=== PATIENT | female | born 1950 | race Caucasian/White ===

== ENCOUNTER 2020-07-04 13:54 | Inpatient (IN) ==
[2020-07-04] MEDS ORDERED: 0.9 % SODIUM CHLORIDE 1,000 ML IV ONE (15:52)
[2020-07-04] MEDS ORDERED: ONDANSETRON 4 MG/2 ML VIAL IV ONE (15:52)
[2020-07-04] MEDS ORDERED: HYDROmorphone 0.5 MG/0.5 ML SYRINGE IV ONE (15:52)
--- NOTE | 2020-07-04 15:58 | Emergency Department Note ---
Abdominal Pain HPI General Chief Complaint: Abdominal Pain Stated Complaint: Abd Pain Radiates To Back Time Seen by Provider: 07/04/20 15:40 Source: patient Mode of arrival: ambulatory Limitations: no limitations History of Present Illness HPI Narrative: Narrative: 70-year-old female patient presents emergency depar tme with chief complaint of right upper quadrant abdominal pain. She tells me this is "been coming on for some time" however it worsened considerably today after eating breakfast. She mentions eating an omelette and some neeraj prior to the worsening pain. She describes the pain as a deep, boring ache to her right upper quadrant that radiates towards the posterior. She admits to still having her gallbladder. She admits to some mild nausea but no vomiting. She admits to considerable diarrhea. ROS: Denies systemic illness, fever, sweats, chills. Denies headaches, tinnitus, or vision changes. Denies runny nose, sinus congestion, or cough. Denies shortness of breath. Denies retrosternal chest pain or palpitations. Denies dysuria, hematuria, urinary frequency, or urinary urgency. Denies generalized or focal weakness. Related Data Home Medications Medication Instructions Recorded Confirmed cyanocobalamin (vitamin B-12) 1,000 mcg PO QDAY 12/03/16 07/04/20 1,000 mcg tablet warfarin 7.5 mg tablet 7.5 mg PO WEEKLY tab 12/04/19 07/04/20 insulin glargine 100 unit/mL (3 45 unit SUB-Q QDAY ml 04/09/20 07/04/20 mL) subcutaneous pen garcinia cambogia 1 tab PO TID 06/03/20 07/04/20 omeprazole 20 mg PO DAILY 07/04/20 07/04/20 Previous Rx's Medication Instructions Recorded blood-glucose meter #1 each 05/02/19 denosumab 60 mg/mL subcutaneous 60 mg SUB-Q [id number] #1 ml 12/04/19 syringe metoprolol tartrate 50 mg tablet 50 mg PO BID #60 tab 02/26/20 isosorbide mononitrate 30 mg 30 mg PO DAILY #90 tab 04/17/20 tablet,extended release 24 hr losartan 50 mg tablet 50 mg PO QDAY #90 tab 05/20/20 warfarin 2.5 mg tablet See Rx Instructions .ROUTE 05/27/20 .COMPLEX #60 tab torsemide 10 mg tablet 10 mg PO QDAY #30 tab 06/03/20 Allergies Allergy/AdvReac Type Severity Reaction Status Date / Time lisinopril AdvReac Intermediate Anxiety Verified 06/03/20 10:39 sulfamethoxazole AdvReac Mild Other Verified 06/03/20 10:39 [From Bactrim] trimethoprim [From Bactrim] AdvReac Mild Other Verified 06/03/20 10:39 aspirin AdvReac Unknown bleeding Verified 06/03/20 10:39 in eye Review of Systems ROS ROS Narrative: Narrative: All systems ED: reviewed and negative except as stated. 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) Osteoporosis (Chronic) Anticoagulated on Coumadin (Chronic) Hyperkalemia (Acute) CKD (chronic kidney disease), stage III (Chronic) H/O: hysterectomy (Acute) H/O colonoscopy (Acute) 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) Hyperlipidemia (Acute) Hypertension, essential (Chronic) Gestational diabetes mellitus (Acute) GERD (gastroesophageal reflux disease) (Acute) Edema (Acute) DMII (diabetes mellitus, type 2) (Chronic) CVA (cerebral vascular accident) (Acute) Cataracts, bilateral (Acute) Anemia (Acute) Medical History Acute on chronic kidney failure (Ruled-out) Altered mental status (Resolved) Anemia (Acute) Cataracts, bilateral (Acute) CKD (chronic kidney disease) (Ruled-out) CKD (chronic kidney disease), stage III (Chronic) CVA (cerebral vascular accident) (Acute) DMII (diabetes mellitus, type 2) (Chronic) Edema (Acute) GERD (gastroesophageal reflux disease) (Acute) Gestational diabetes mellitus (Acute) Hyperkalemia (Acute) Hyperkalemia (Resolved) Hyperlipidemia (Acute) Hypertension, essential (Chronic) Well-controlled on current regimen Hypertensive renal disease (Ruled-out) intermediate frame tender use of drug (Ruled-out) Osteoporosis (Chronic) GI issue preclude Phosphonates Recheck Vit D2 levels and PTHi Prolia 60ug SQ q 6 months Pneumonia involving right lung (Resolved) Renal insufficiency (Resolved) 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 She is in no acute respiratory distress.) Head Head: atraumatic and normocephalic Eye Eye: Present normal appearance, PERRL and EOMI; Absent scleral icterus and conjunctival injection ENT ENT: Present normal oropharynx and mucous membranes moist Neck Neck: Present trachea midline; Absent lymphadenopathy Chest Chest: Present symmetric chest wall rise Respiratory Respiratory: Present normal lung sounds bilaterally; Absent respiratory distress, wheezes, stridor, accessory muscle use and prolonged expiratory phase Cardiovascular Cardiovascular: Present regular rate, normal rhythm and systolic murmur; Absent diastolic murmur Adbominal Abdominal: Present soft, tenderness, guarding, normal bowel sounds and Carroll's sign; Absent distention, rebound, rigidity, organomegaly and mass Expanded Abdominal Abdominal Tenderness: Present RUQ and severe Extremities Extremities: Present normal inspection, full ROM and normal capillary refill; Absent pedal edema Neurological Neurological: Present alert and oriented X3 Psychiatric Psychiatric: Present normal affect and normal mood Skin Skin: Present warm, dry and normal color Course Course Course Narrative: The differential diagnosis for upper abdominal pain in the adult patient large and contains the following conditions. Predominately left sided: Splenomegaly, splenic infarct, splenic abscess, and splenic rupture. Predominately right sided: Biliary colic, acute cholecystitis, acute cholang itis, sphincter of Oddi dysfunction, acute hepatitis, perihepatitis (Nuyq-Znml-Ieject syndrome), liver abscess, portal vein thrombosis, and Budd- Chiari syndrome. Patient did have considerable tenderness on abdominal exam to the right upper quadrant. She notes the pain worsened after eating a high-fat breakfast. We are going to order an ultrasound of her gallbladder looking for cholecystitis/cholelithiasis. I am going to order some screening laboratory studies. Patient was provided normal saline at thousand milliliter bolus. She was given Dilaudid 0.5mg and Zofran 4 mg IVP. Reevaluation(s) Reevaluation #1: A review the patient's diagnostics show the following: CBC WBC 8.0, RBC 5.14, hemoglobin 14.6, hematocrit 46.6, platelets 204. CMP BUN 63, creatinine 1.7, glucose 240, AST 379, ALT 171, alkaline phosphatase 200, globulin 4.0, lipase 157, all others normal limits. Ultrasound of the right upper quadrant shows evidence consistent with cholecystitis. After reviewing all the data I reached out to our on-call general surgeon (Dr. Felipe) and discussed the case with him. At this time Dr. Felipe has said he would like the patient to be admitted under observation here. He requested that I place observation holding orders and that he would take over the patient's care in the hospital. With that in mind, the holding orders were placed as requested. All further treatment decisions, modalities, and ultimate patient disposition will be carried out by Dr. Felipe. Vital Signs Vital signs: Vital Signs Temperature 97.3 F 07/04/20 14:16 Pulse Rate 67 07/04/20 14:16 Respiratory Rate 20 07/04/20 14:16 Blood Pressure 168/70 07/04/20 14:16 Pulse Oximetry (%) 100 07/04/20 14:16 Temperature 97.3 F 07/04/20 20:04 Pulse Rate 68 07/04/20 20:04 Respiratory Rate 16 07/04/20 20:04 Blood Pressure 168/70 07/04/20 20:04 Pulse Oximetry (%) 93 07/04/20 20:04 [facility] Narrative Medical decision making narrative: Narrative: Lab Data Lab results reviewed: Yes I reviewed the patient's lab results. Result diagrams: 07/04/20 16:00 07/04/20 20:19 Labs: Lab Results 07/04/20 07/04/20 07/04/20 Range/Units 16:00 16:00 16:00 WBC 8.0 (4.50-11.00) K/mcL RBC 5.14 (3.59-5.38) M/mcL Hgb 14.6 (11.2-15.7) g/dL Hct 46.6 H (34.1-44.9) % MCV 90.7 (80.0-100.0) fL MCH 28.4 (26.0-34.0) pg MCHC 31.3 (31.0-36.0) g/dL RDW 12.7 (11.5-14.5) % Plt Count 204 (140-440) K/mcL MPV 10.7 H (7.4-10.4) fL Gran % 59.4 (38.0-78.0) % Lymph % (Auto) 27.2 (15.5-49.0) % [place] % (Auto) 11.8 (1.0-12.0) % Eos % (Auto) 1.5 (0.0-7.0) % Baso % (Auto) 0.1 (0.0-2.0) % Gran # 4.72 (1.80-8.00) K/mcL Lymph # (Auto) 2.16 (1.50-4.80) K/mcL [place] # (Auto) 0.94 H (0.10-0.90) K/mcL Eos # (Auto) 0.12 (0.00-0.70) K/mcL Baso # (Auto) 0.01 (0.00-0.30) K/mcL PT TNP INR TNP Sodium 138 (133-145) mmol/L Potassium 4.6 (3.3-5.1) mmol/L Chloride 100 (96-108) mmol/L Carbon Dioxide 24 (22-30) mmol/L Anion Gap 14.0 (8-16) BUN 63 H (8-23) mg/dl Creatinine 1.7 H (0.6-1.1) mg/dl GFR Calculation 30 Glucose 240 H (70-105) mg/dL Calcium 8.9 (8.6-10.4) mg/dl Total Bilirubin 1.0 (0.0-1.0) mg/dL AST 379 H (0-37) U/l ALT 171 H (0-40) U/l Alkaline Phosphatase 200 H (39-117) U/L Total Protein 7.9 (5.9-8.4) gm/dL Albumin 3.9 (3.2-5.2) gm/dL Globulin 4.0 H (2.2-3.7) gm/dL Albumin/Globulin Ratio 1.0 (1.0-2.3) Lipase 157 H (7-60) U/L Radiology Data Radiology results reviewed: Yes I reviewed the patient's radiology results. Radiology results narrative: Ordering Physician: Deshawn Hale PA-C Date of Service: 07/04/20 Procedure(s): US abdomen limited Accession Number(s): [id number] History: Right upper quadrant pain, cholecystitis FINDINGS: The gallbladder is filled with a large amount of heterogeneous echogenic material. This may be a combination of sludge and tiny stones. Pus may also create a similar appearance. The wall is abnormally thickened and measures 7 mm. The patient was tender while scanning over the gallbladder. No para cholecystic fluid collection is present. The common bile duct is difficult to visualize but does not appear dilated. The visualized segment was 4 mm in diameter. Patient was technically difficult to scan due to body habitus. The liver is relatively dense and difficult to penetrate. This is partially due to technical limitations from the patient's habitus, but I suspect there is also fatty infiltration. The liver does not appear to be enlarged.. The pancreas is poorly visualized. The visualized segments appear normal. No ascites is present. IMPRESSION: Cholecystitis Deshawn Hale was called with the results Interpreted and Authenticated by: Jude Hernandez 07/04/20 Discharge Plan Patient/Caregiver Discharge Instructions Pt seen by HEEL ATTACHER/PA only: Yes Clinical Impression: Acute cholecystitis, CKD (chronic kidney disease), stage III, Hypertension, essential DMII (diabetes mellitus, type 2) Qualifiers: Diabetes mellitus usp insulin use: with usp use Diabetes mellitus complication status: with hyperglycemia Qualified Code(s): E11.65 - Type 2 diabetes mellitus with hyperglycemia Patient Disposition: Xfer As Outpt/Obs ([facility]) Condition: Good Discharge Date/Time: 07/04/20 19:55
--- NOTE | 2020-07-04 16:46 | Ultrasound Report ---
History: Right upper quadrant pain, cholecystitis FINDINGS: The gallbladder is filled with a large amount of heterogeneous echogenic material. This may be a combination of sludge and tiny stones. Pus may also create a similar appearance. The wall is abnormally thickened and measures 7 mm. The patient was tender while scanning over the gallbladder. No para cholecystic fluid collection is present. The common bile duct is difficult to visualize but does not appear dilated. The visualized segment was 4 mm in diameter. Patient was technically difficult to scan due to body habitus. The liver is relatively dense and difficult to penetrate. This is partially due to technical limitations from the patient's habitus, but I suspect there is also fatty infiltration. The liver does not appear to be enlarged.. The pancreas is poorly visualized. The visualized segments appear normal. No ascites is present. IMPRESSION: Cholecystitis Deshawn Hale was called with the results Interpreted and Authenticated by: Jude Hernandez 07/04/20
[2020-07-04 16:56] LABS: Basophils # (Auto) 0.01 K/mcL (0.00-0.30); Basophils % (Auto) 0.1 % (0.0-2.0); Eosinophils # (Auto) 0.12 K/mcL (0.00-0.70); Eosinophils % (Auto) 1.5 % (0.0-7.0); Granulocytes % (Auto) 59.4 % (38.0-78.0); Hematocrit 46.6 % (34.1-44.9); Hemoglobin 14.6 g/dL (11.2-15.7); Lymphocytes # (Auto) 2.16 K/mcL (1.50-4.80); Lymphocytes % (Auto) 27.2 % (15.5-49.0); Mean Cell Volume 90.7 fL (80.0-100.0); Mean Corpuscular HGB Conc 31.3 g/dL (31.0-36.0); Mean Platelet Volume 10.7 fL (7.4-10.4); Monocytes # (Auto) 0.94 K/mcL (0.10-0.90); Monocytes % (Auto) 11.8 % (1.0-12.0); Platelet Count 204 K/mcL (140-440); RBC 5.14 M/mcL (3.59-5.38); Red Cell Distribution Width 12.7 % (11.5-14.5)
[2020-07-04 17:18] LABS: ALT/SGPT 171 U/l (0-40); AST/SGOT 379 U/l (0-37); Albumin 3.9 gm/dL (3.2-5.2); Alkaline Phosphatase 200 U/L (39-117); Blood Urea Nitrogen 63 mg/dl (8-23); Calcium 8.9 mg/dl (8.6-10.4); Carbon Dioxide 24 mmol/L (22-30); Chloride 100 mmol/L (96-108); Glomerular Filtration Rate 30; Glucose 240 mg/dL (70-105)
[2020-07-04] MEDS ORDERED: ONDANSETRON 4 MG/2 ML VIAL IV PRN (18:50)
[2020-07-04] MEDS ORDERED: PIPERACILLIN SODIUM/TAZOBACTAM 3.375 GM in DEXTROSE 5% IN WATER 50 ML IV SCH (19:00)
[2020-07-04] MEDS: 0.9 % SODIUM CHLORIDE 1,000 ML IV SCH (20:30)
[2020-07-04 21:19] LABS: INR 2.4 (0.9-1.1); Prothrombin Time 26.5 sec (11.9-14.5)
[2020-07-04 21:30] LABS: ALT/SGPT 256 U/l (0-40); AST/SGOT 519 U/l (0-37); Albumin 3.5 gm/dL (3.2-5.2); Albumin/Globulin Ratio 0.9 (1.0-2.3); Alkaline Phosphatase 198 U/L (39-117); Bilirubin,Direct 1.2 mg/dL (0.0-0.3); Bilirubin,Total 1.4 mg/dL (0.0-1.0); Blood Urea Nitrogen 57 mg/dl (8-23); Calcium 8.1 mg/dl (8.6-10.4); Carbon Dioxide 20 mmol/L (22-30); Chloride 100 mmol/L (96-108); Globulin 3.9 gm/dL (2.2-3.7); Glomerular Filtration Rate 35; Glucose 229 mg/dL (70-105); Phosphorous 3.4 mg/dL (2.7-4.5); Triglycerides 89 mg/dl (<150)
[2020-07-04 21:46] LABS: Lactate Dehydrogenase 589 U/L (94-250)
[2020-07-04] MEDS: METOPROLOL TARTRATE 50 MG TABLET PO SCH (21:59)
[2020-07-04] MEDS: INSULIN LISPRO 1 UNIT/0.01 ML UNIT SQ SCH (22:43)
[2020-07-04] MEDS: 0.9 % SODIUM CHLORIDE 10 ML SYRINGE IV SCH (22:44)
[2020-07-05] MEDS ORDERED: INSULIN LISPRO 1 UNIT/0.01 ML UNIT SQ SCH
[2020-07-05] MEDS ORDERED: HYDROmorphone 0.5 MG/0.5 ML SYRINGE ONE (00:49)
[2020-07-05] MEDS: PIPERACILLIN SODIUM/TAZOBACTAM 2.25 GM in DEXTROSE 5% IN WATER 50 ML IV SCH ×5 (01:01→18:21)
[2020-07-05] MEDS: 0.9 % SODIUM CHLORIDE 1,000 ML IV SCH ×3 (05:05→20:05)
[2020-07-05] MEDS: 0.9 % SODIUM CHLORIDE 10 ML SYRINGE IV SCH ×3 (05:51→20:06)
[2020-07-05] MEDS: INSULIN LISPRO 1 UNIT/0.01 ML UNIT SQ SCH ×7 (06:12→20:18)
[2020-07-05 06:34] LABS: Basophils # (Auto) 0.02 K/mcL (0.00-0.30); Basophils % (Auto) 0.5 % (0.0-2.0); Eosinophils # (Auto) 0.17 K/mcL (0.00-0.70); Eosinophils % (Auto) 4.2 % (0.0-7.0); Granulocytes % (Auto) 37.2 % (38.0-78.0); Hematocrit 42.8 % (34.1-44.9); Lymphocytes # (Auto) 1.78 K/mcL (1.50-4.80); Mean Cell Volume 94.1 fL (80.0-100.0); Mean Corpuscular HGB Conc 30.4 g/dL (31.0-36.0); Mean Platelet Volume 10.4 fL (7.4-10.4); Monocytes # (Auto) 0.57 K/mcL (0.10-0.90); Monocytes % (Auto) 14.1 % (1.0-12.0); Platelet Count 179 K/mcL (140-440); RBC 4.55 M/mcL (3.59-5.38); Red Cell Distribution Width 12.9 % (11.5-14.5); WBC 4.1 K/mcL (4.50-11.00)
[2020-07-05 06:56] LABS: ALT/SGPT 431 U/l (0-40); Albumin/Globulin Ratio 0.9 (1.0-2.3); Alkaline Phosphatase 209 U/L (39-117); Bilirubin,Direct 1.4 mg/dL (0.0-0.3); Bilirubin,Total 1.5 mg/dL (0.0-1.0); Blood Urea Nitrogen 49 mg/dl (8-23); Calcium 7.6 mg/dl (8.6-10.4); Carbon Dioxide 19 mmol/L (22-30); Chloride 105 mmol/L (96-108); Globulin 3.4 gm/dL (2.2-3.7); Glucose 206 mg/dL (70-105); Phosphorous 3.7 mg/dL (2.7-4.5); Triglycerides 90 mg/dl (<150); Uric Acid 9.1 mg/dL (2.5-8.0)
[2020-07-05 06:57] LABS: Glomerular Filtration Rate 26; Lactate Dehydrogenase 686 U/L (94-250)
[2020-07-05] MEDS ORDERED: 0.9 % SODIUM CHLORIDE 250 ML IV SCH (07:00)
[2020-07-05] MEDS: OMEPRAZOLE 20 MG CAPSULE PO SCH (07:08)
[2020-07-05 07:09] LABS: AST/SGOT 780 U/l (0-37)
[2020-07-05] MEDS ORDERED: PIPERACILLIN SODIUM/TAZOBACTAM 2.25 GM in DEXTROSE 5% IN WATER 50 ML IV SCH (08:00)
[2020-07-05] MEDS: PHYTONADIONE 10 MG/ML AMPUL SQ SCH ×2 (09:05→20:05)
[2020-07-05] MEDS: ISOSORBIDE MONONITRATE 30 MG TAB.XL.24H PO SCH (09:08)
[2020-07-05] MEDS: TORSEMIDE 10 MG TABLET PO SCH (09:09)
[2020-07-05] MEDS: LOSARTAN 50 MG TABLET PO SCH (09:09)
[2020-07-05] MEDS: METOPROLOL TARTRATE 50 MG TABLET PO SCH ×2 (09:09→20:07)
[2020-07-05] MEDS: HYDROmorphone 0.5 MG/0.5 ML SYRINGE IV PRN ×2 (10:08→20:22)
--- NOTE | 2020-07-05 17:40 | General Surg History&Physical ---
HPI History of Present Illness Patient information: Note initiated : 07/04/20 at 7:39 pm Service Date, if different from initiated Date: [] Patient: Jessica Mendoza a 70 y/o F admitted on for Abd Pain Radiates To Back. Chief Complaint: [] Chief complaint: right sided abdominal pain History of present illness: Ms. Mendoza is a 70 year old F admitted with complaint of right-sided abdominal pain and findings of gallstones with mild elevation in transaminases. The patient states that she developed right upper quadrant pain radiating through to her back and into her epigastrium earlier on the day of admission. She has not had similar pain in the past. The pain persisted and she was seen in the emergency room were it was documented that she had gallstone disease and cholecystitis. Because of elevation in transaminases and slight elevation in bilirubin we will wait until tomorrow morning to get an MRCP. The patient has been on chronic anticoagulant therapy with warfarin and her PT/INR will need to be evaluated and she probably will need to have vitamin K and fresh frozen plasma prior to having surgery. Review of Systems All systems: reviewed and no additional remarkable complaints except as stated PFSH [facility] Medical History Acute on chronic kidney failure (Ruled-out) Altered mental status (Resolved) Anemia (Acute) Cataracts, bilateral (Acute) CKD (chronic kidney disease) (Ruled-out) CKD (chronic kidney disease), stage III (Chronic) CVA (cerebral vascular accident) (Acute) DMII (diabetes mellitus, type 2) (Chronic) Edema (Acute) GERD (gastroesophageal reflux disease) (Acute) Gestational diabetes mellitus (Acute) Hyperkalemia (Acute) Hyperkalemia (Resolved) Hyperlipidemia (Acute) Hypertension, essential (Chronic) Well-controlled on current regimen Hypertensive renal disease (Ruled-out) terminal make up operator use of drug (Ruled-out) Osteoporosis (Chronic) GI issue preclude Phosphonates Recheck Vit D2 levels and PTHi Prolia 60ug SQ q 6 months Pneumonia involving right lung (Resolved) Renal insufficiency (Resolved) 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) Surgical History H/O colonoscopy (Acute) HP H/O: hysterectomy (Acute) Family History Unknown Type 2 diabetes mellitus Hay fever Pulmonary hypertension Rheumatoid arthritis Social History smoking status: Never smoker alcohol intake frequency: does not drink MEDS/ALLERGIES Home Medications and Allergies Home Medications Medication Instructions Recorded Confirmed Type cyanocobalamin (vitamin B-12) 1,000 mcg PO QDAY 12/03/16 07/04/20 History 1,000 mcg tablet blood-glucose meter #1 each 05/02/19 07/04/20 Rx denosumab 60 mg/mL subcutaneous 60 mg SUB-Q [id number] #1 ml 12/04/19 07/04/20 Rx syringe warfarin 7.5 mg tablet 7.5 mg PO WEEKLY tab 12/04/19 07/04/20 History metoprolol tartrate 50 mg tablet 50 mg PO BID #60 tab 02/26/20 07/04/20 Rx insulin glargine 100 unit/mL (3 45 unit SUB-Q QDAY ml 04/09/20 07/04/20 History mL) subcutaneous pen isosorbide mononitrate 30 mg 30 mg PO DAILY #90 tab 04/17/20 07/04/20 Rx tablet,extended release 24 hr losartan 50 mg tablet 50 mg PO QDAY #90 tab 05/20/20 07/04/20 Rx warfarin 2.5 mg tablet See Rx Instructions .ROUTE 05/27/20 07/04/20 Rx .COMPLEX #60 tab garcinia cambogia 1 tab PO TID 06/03/20 07/04/20 History torsemide 10 mg tablet 10 mg PO QDAY #30 tab 06/03/20 07/04/20 Rx omeprazole 20 mg PO DAILY 07/04/20 07/04/20 History Allergies Allergy/AdvReac Type Severity Reaction Status Date / Time lisinopril AdvReac Intermediate Anxiety Verified 06/03/20 10:39 sulfamethoxazole AdvReac Mild Other Verified 06/03/20 10:39 [From Bactrim] trimethoprim [From Bactrim] AdvReac Mild Other Verified 06/03/20 10:39 aspirin AdvReac Unknown bleeding Verified 06/03/20 10:39 in eye Physical Examination Vital Signs Vital signs: Temp Pulse Resp BP Pulse Ox 97.3 F 68 16 161/75 93 07/04/20 14:16 07/04/20 17:10 07/04/20 17:10 07/04/20 17:10 07/04/20 17:10 General physical appearance General physical exam: well developed, well nourished, moderate distress, moderate pain and obese Eyes Eye exam: PERRL and normal ocular movement; negative icteric ENT ENT exam: normal mucosa, no hearing loss and no congestion Head Head exam IM: Present atraumatic, normal inspection and normocephalic Neck Neck exam: no masses, no bruits, trachea midline, no lymphadenopathy and no venous distension Cardiovascular Cardiovascular exam IM: Present normal rate and rhythm, RRR, +S1 and +S2; Absent JVD Respiratory Respiratory exam: normal expansion, normal respiratory effort, clear to percussion and clear to auscultation Abdomen Abdomen: Present tender (right upper quadrant epigastric tenderness) Integumentary Integumentary: Present no rash, no growths, no abnormal pigmentation and other Neurologic Neurologic: Present normal coordination and normal sensation Musculoskeletal Musculoskeletal: Present normal gait, normal posture and other (chronic stasis changes with healed ulceration left lower extremity from previous injury) Psychiatric Psychiatric: Present oriented to time, oriented to person, oriented to place, speech is normal and memory intact; Absent other Results Labs Result diagrams: 07/05/20 05:17 07/05/20 05:17 Labs: Abnormal lab results 07/04/20 07/04/20 Range/Units 16:00 16:00 Hct 46.6 H (34.1-44.9) % MPV 10.7 H (7.4-10.4) fL [place] # (Auto) 0.94 H (0.10-0.90) K/mcL BUN 63 H (8-23) mg/dl Creatinine 1.7 H (0.6-1.1) mg/dl Glucose 240 H (70-105) mg/dL AST 379 H (0-37) U/l ALT 171 H (0-40) U/l Alkaline Phosphatase 200 H (39-117) U/L Globulin 4.0 H (2.2-3.7) gm/dL Lipase 157 H (7-60) U/L Diabetes panel 07/04/20 Range/Units 16:00 Sodium 138 (133-145) mmol/L Potassium 4.6 (3.3-5.1) mmol/L Chloride 100 (96-108) mmol/L Carbon Dioxide 24 (22-30) mmol/L BUN 63 H (8-23) mg/dl Creatinine 1.7 H (0.6-1.1) mg/dl Glucose 240 H (70-105) mg/dL Calcium 8.9 (8.6-10.4) mg/dl AST 379 H (0-37) U/l ALT 171 H (0-40) U/l Alkaline Phosphatase 200 H (39-117) U/L Total Protein 7.9 (5.9-8.4) gm/dL Albumin 3.9 (3.2-5.2) gm/dL Calcium panel 07/04/20 Range/Units 16:00 Calcium 8.9 (8.6-10.4) mg/dl Albumin 3.9 (3.2-5.2) gm/dL Pituitary panel 07/04/20 Range/Units 16:00 Sodium 138 (133-145) mmol/L Potassium 4.6 (3.3-5.1) mmol/L Chloride 100 (96-108) mmol/L Carbon Dioxide 24 (22-30) mmol/L BUN 63 H (8-23) mg/dl Creatinine 1.7 H (0.6-1.1) mg/dl Glucose 240 H (70-105) mg/dL Calcium 8.9 (8.6-10.4) mg/dl Adrenal panel 07/04/20 Range/Units 16:00 Sodium 138 (133-145) mmol/L Potassium 4.6 (3.3-5.1) mmol/L Chloride 100 (96-108) mmol/L Carbon Dioxide 24 (22-30) mmol/L BUN 63 H (8-23) mg/dl Creatinine 1.7 H (0.6-1.1) mg/dl Glucose 240 H (70-105) mg/dL Calcium 8.9 (8.6-10.4) mg/dl Total Bilirubin 1.0 (0.0-1.0) mg/dL AST 379 H (0-37) U/l ALT 171 H (0-40) U/l Alkaline Phosphatase 200 H (39-117) U/L Total Protein 7.9 (5.9-8.4) gm/dL Albumin 3.9 (3.2-5.2) gm/dL All other labs normal. A/P Assessment and plan (1) Acute cholecystitis: Status: Acute (2) Warfarin anticoagulation: Status: Acute (3) Anticoagulated on Coumadin: Status: Chronic (4) CKD stage G4/A3, GFR 15-29 and albumin creatinine ratio >300 mg/g: Status: Acute (5) Hypertension, essential: Status: Chronic Comment: Well-controlled on current regimen (6) GERD (gastroesophageal reflux disease): Status: Acute Narrative A/P Narrative: Zosyn 3.375 g IV every 6 hours Vitamin K 10 mg subcutaneous every 12 hours Check PT/INR and transfuse FFP as needed Probable cholecystectomy on 07/06/2012 Time Spent With Patient Time: Total time spent is greater than 50% in coordination of care (as documented) at patient's floor/unit and/or counseling patient:
--- NOTE | 2020-07-05 17:48 | General Surgery Progress Note ---
SUBJECTIVE Subjective Patient information: Note initiated : 07/05/20 at 5:40 pm Service Date, if different from initiated Date: [] Patient: Jessica Mendoza 70 y/o F admitted on 07/04/20 for Abd Pain Radiates To Back. Chief Complaint: [] Principal diagnosis: acute cholecystitis Interval history: patient states that she feels better however she does have some right upper quadrant discomfort. She has not had nausea and she has been afebrile. Her bilirubin is 1.5, SGOT 780, SGPT 41, alkaline phosphatase 209, white count 4.1, hemoglobin 13, PT 26.5, INR 2.4. MRCP could not be done because of the patient's size. Constitutional Vitals: Vital Signs Temp Pulse Resp BP Pulse Ox 98.4 F 67 18 126/57 93 07/05/20 16:00 07/05/20 16:00 07/05/20 16:00 07/05/20 16:00 07/05/20 16:00 Period Temp Pulse Resp BP Sys/Garcia Pulse Ox Last 24 Hr 97.3 F-98.5 F 63-70 12-18 108-168/51-70 90-99 Intake and Output 07/05/20 07/05/20 07/05/20 05:59 13:59 21:59 Intake Total 2009 599 914 Output Total 450 800 Balance 1560 599 114 Weight 272 lb 6.4 oz Intake & Output: Intake & Output 07/05/20 07/05/20 07/05/20 05:59 13:59 21:59 Intake Total 2009 599 914 Output Total 450 800 Balance 1560 599 114 Weight 272 lb 6.4 oz Intake: IV 1050 50 700 Sodium Chloride 0.9% 1,000 ml @ 1000 400 125 mls/hr IV .Q8H KEDAR Rx#: [id number] Sodium Chloride 0.9% 250 ml @ 250 20 mls/hr IV .[id number] KEDAR Rx#: [id number] Zosyn 2.25 gm In Dextrose 5% in 50 50 Water 50 ml @ 100 mls/hr IV Q6H KEDAR Rx#:[id number] Oral 960 Blood Product 549 214 Output: Void Amount 450 800 Other: Urine Appearance Clear Cloudy Urine Color Bright Yellow Dark Yellow Urine Odor Normal Stool Size Moderate Stool Color Brown Yellow Green Stool Consistency Liquid Liquid Loose Loose # Voids 1 Head Head exam: Present atraumatic, normal inspection and normocephalic Eye Eye exam: Present EOMI, normal appearance and PERRL; Absent scleral icterus Pupils: Present normal accommodation ENT ENT exam: Present mucous membranes moist and normal oropharynx Neck Neck exam: Present full ROM and normal inspection; Absent lymphadenopathy, tenderness and thyromegaly Respiratory Respiratory exam: Present normal respiratory exam and CTAB; Absent rales, rhonchi and wheezes Cardiovascular Cardiovascular exam: Present normal rate and rhythm, RRR, +S1 and +S2 GI/Abdominal GI/Abdominal exam: Present normal bowel sounds, soft and tenderness (right upper quadrant and epigastric tenderness) Extremities Exam Extremities exam: Present full ROM, pedal edema (chronic stasis edema) and tenderness (tenderness lower legs and areas of stasis edema) Back Exam Back exam: Present full ROM; Absent tenderness Neurological Exam Neurological exam: Present alert, CN II-XII intact, normal gait, oriented X3 and reflexes normal Psychiatric Psychiatric exam: Present anxious, normal affect and normal mood A/P Assessment and plan (1) Acute cholecystitis: Status: Acute (2) CKD stage G4/A3, GFR 15-29 and albumin creatinine ratio >300 mg/g: Status: Acute (3) Anticoagulated on Coumadin: Status: Chronic (4) Hypertension, essential: Status: Chronic Comment: Well-controlled on current regimen (5) DMII (diabetes mellitus, type 2): Status: Chronic Qualifiers: Diabetes mellitus intermediate card tender insulin use: with penitentiary use Diabetes mellitus complication status: with hyperglycemia Qualified Code(s): E11.65 - Type 2 diabetes mellitus with hyperglycemia; Z79.4 - [facility] (current) use of insulin Narrative A/P Narrative: vitamin K 10 mg subcutaneous every 12 hours FFP 3 units Recheck PT/INR later today Probable laparoscopic cholecystectomy with cholangiogram tomorrow Check LFTs in the morning. Time Spent With Patient Time: Total time spent is greater than 50% in coordination of care (as documented) at patient's floor/unit and/or counseling patient:
[2020-07-05 17:49] LABS: Appearance,Urine CLEAR; Bacteria,Urine 0 /hpf (0); Bilirubin,Urine NEG (NEG); Color,Urine YELLOW; Culture Indicated,Urine YES; Glucose,Urine (UA) NEGATIVE (NEG); Ketones,Urine NEG (NEG); Leukocyte Esterase,Urine 25 /uL (NEG); Nitrate,Urine NEG (NEG); Protein,Urine NEG (NEG); Specific Gravity,Urine 1.013 (1.000-1.035); Urine Blood 0.03 mg/dL (<0.03); Urine RBC 2 /hpf (0-1); Urine Squamous Epithelial Cell 2 /hpf (0-4); Urine WBC 13 /hpf (0-4); Urobilinogen,Urine NEG (NEG)
[2020-07-05 19:10] LABS: INR 1.5 (0.9-1.1)
[2020-07-05 21:36] LABS: Appearance,Urine CLEAR; Bacteria,Urine 0 /hpf (0); Bilirubin,Urine NEG (NEG); Color,Urine YELLOW; Culture Indicated,Urine NO; Glucose,Urine (UA) NEGATIVE (NEG); Ketones,Urine NEG (NEG); Leukocyte Esterase,Urine NEG /uL (NEG); Nitrate,Urine NEG (NEG); Protein,Urine NEG (NEG); Specific Gravity,Urine 1.011 (1.000-1.035); Urine Blood 0.2 mg/dL (<0.03); Urine RBC 1 /hpf (0-1); Urine Squamous Epithelial Cell 0 /hpf (0-4); Urine WBC 1 /hpf (0-4); Urobilinogen,Urine NEG (NEG)
[2020-07-06] MEDS: PIPERACILLIN SODIUM/TAZOBACTAM 2.25 GM in DEXTROSE 5% IN WATER 50 ML IV SCH ×6 (00:10→23:29)
[2020-07-06] MEDS: 0.9 % SODIUM CHLORIDE 1,000 ML IV SCH ×4 (05:08→22:34)
[2020-07-06] MEDS: 0.9 % SODIUM CHLORIDE 10 ML SYRINGE IV SCH ×3 (05:09→20:50)
[2020-07-06 06:10] LABS: INR 1.2 (0.9-1.1); Prothrombin Time 16.1 sec (11.9-14.5)
[2020-07-06 06:14] LABS: Basophils # (Auto) 0.02 K/mcL (0.00-0.30); Basophils % (Auto) 0.4 % (0.0-2.0); Eosinophils # (Auto) 0.34 K/mcL (0.00-0.70); Eosinophils % (Auto) 6.1 % (0.0-7.0); Granulocytes % (Auto) 43.3 % (38.0-78.0); Hematocrit 44.3 % (34.1-44.9); Hemoglobin 13.4 g/dL (11.2-15.7); Lymphocytes # (Auto) 2.01 K/mcL (1.50-4.80); Lymphocytes % (Auto) 36.3 % (15.5-49.0); Mean Cell Volume 93.1 fL (80.0-100.0); Mean Corpuscular HGB Conc 30.2 g/dL (31.0-36.0); Mean Platelet Volume 10.4 fL (7.4-10.4); Monocytes # (Auto) 0.77 K/mcL (0.10-0.90); Monocytes % (Auto) 13.9 % (1.0-12.0); Platelet Count 180 K/mcL (140-440); RBC 4.76 M/mcL (3.59-5.38); Red Cell Distribution Width 12.9 % (11.5-14.5); WBC 5.5 K/mcL (4.50-11.00)
[2020-07-06 06:40] LABS: ALT/SGPT 376 U/l (0-40); AST/SGOT 413 U/l (0-37); Albumin 3.3 gm/dL (3.2-5.2); Albumin/Globulin Ratio 0.8 (1.0-2.3); Alkaline Phosphatase 249 U/L (39-117); Bilirubin,Total 2.4 mg/dL (0.0-1.0); Calcium 7.8 mg/dl (8.6-10.4); Carbon Dioxide 22 mmol/L (22-30); Chloride 106 mmol/L (96-108); Glomerular Filtration Rate 30; Glucose 158 mg/dL (70-105); Lactate Dehydrogenase 407 U/L (94-250); Triglycerides 86 mg/dl (<150)
[2020-07-06 06:48] LABS: Bilirubin,Direct 1.8 mg/dL (0.0-0.3); Blood Urea Nitrogen 31 mg/dl (8-23); Phosphorous 2.1 mg/dL (2.7-4.5); Uric Acid 6.8 mg/dL (2.5-8.0)
[2020-07-06] MEDS: OMEPRAZOLE 20 MG CAPSULE PO SCH (07:09)
[2020-07-06] MEDS: INSULIN LISPRO 1 UNIT/0.01 ML UNIT SQ SCH ×4 (07:09→20:49)
[2020-07-06] MEDS ORDERED: SUGAMMADEX SODIUM 200 MG/2 ML VIAL IV ONE (08:24)
[2020-07-06] MEDS ORDERED: ROCURONIUM 10 MG/ML ML IV ONE (08:24)
[2020-07-06] MEDS ORDERED: ONDANSETRON 4 MG/2 ML VIAL IV ONE (08:24)
[2020-07-06] MEDS ORDERED: PROPOFOL 200 MG/20 ML VIAL IV ONE (08:24)
[2020-07-06] MEDS ORDERED: DEXAMETHASONE 10 MG/ML VIAL IV ONE (08:24)
[2020-07-06] MEDS ORDERED: fentaNYL 100 MCG/2 ML VIAL IV ONE (08:24)
[2020-07-06] MEDS ORDERED: GLYCOPYRROLATE 0.2 MG/ML VIAL IV ONE (08:24)
[2020-07-06] MEDS ORDERED: KETAMINE 100 MG/ML ML IV ONE (08:24)
[2020-07-06] MEDS ORDERED: LIDOCAINE HCL/PF 100 MG/5 ML SYRINGE IV ONE (08:24)
[2020-07-06] MEDS ORDERED: MIDAZOLAM 2 MG/2 ML VIAL IV ONE (08:24)
[2020-07-06] MEDS ORDERED: IOVERSOL 100 ML SYRINGE IJ ONE (09:16)
[2020-07-06] MEDS ORDERED: KETOROLAC 15 MG/ML VIAL IV PRN (10:04)
[2020-07-06] MEDS ORDERED: ONDANSETRON 4 MG/2 ML VIAL IV PRN ×2 (10:04→12:30)
[2020-07-06] MEDS ORDERED: IPRATROPIUM/ALBUTEROL 3 ML AMPUL.NEB NEB PRN (10:04)
[2020-07-06] MEDS ORDERED: PROMETHAZINE 25 MG/ML VIAL IV PRN (10:04)
[2020-07-06] MEDS ORDERED: MEPERIDINE 25 MG/ML SYRINGE IV PRN (10:04)
[2020-07-06] MEDS ORDERED: PROMETHAZINE 25 MG/ML VIAL IM PRN (10:04)
[2020-07-06] MEDS ORDERED: MEPERIDINE 25 MG/ML SYRINGE IV ONE (10:04)
[2020-07-06] MEDS ORDERED: fentaNYL 100 MCG/2 ML VIAL IV PRN (10:04)
[2020-07-06] MEDS ORDERED: MEPERIDINE 50 MG/ML INJECTION IM PRN (10:04)
[2020-07-06] MEDS ORDERED: BENZOCAINE/MENTHOL 1 LOZENGE PO PRN (10:04)
[2020-07-06] MEDS ORDERED: LACTATED RINGERS 1,000 ML IV SCH (10:15)
--- NOTE | 2020-07-06 10:53 | Brief Operative Note ---
Brief Operative Note Date of procedure: 07/06/20 Pre-op diagnosis: acute cholecystitis with cholelithiasis Post-op diagnosis: other (acute cholecystitis with cholelithiasis) Procedure: laparoscopic cholecystectomy with attempted cholangiogram Grafts/Implants: No (310 KIRA DRAIN) Anesthesia: GETA Findings: ACUTE SEVERE INFLAMMATION OF GALLBLADDER WITH SMALL STONES FILLING GALLBLADDER;CYSTIC DUCT WAS SEVERELY INFLAMED AND SCAREDAND LUMEN COULD NOT BE CANNULATED FROR CHOLANGIOGRAM Complications: none Surgeon: Vinh Felipe Estimated blood loss (cc): 50 Specimens Removed/Pathology: other (GALLBLADDER) Condition: stable Disposition: PACU
[2020-07-06] MEDS ORDERED: IPRATROPIUM/ALBUTEROL 3 ML AMPUL.NEB NEB ONE (12:11)
[2020-07-06] MEDS: HYDROmorphone 0.5 MG/0.5 ML SYRINGE IV PRN ×2 (13:46→23:29)
[2020-07-06] MEDS: ISOSORBIDE MONONITRATE 30 MG TAB.XL.24H PO SCH ×2 (14:03→14:56)
[2020-07-06] MEDS: TORSEMIDE 10 MG TABLET PO SCH ×2 (14:03→14:57)
[2020-07-06] MEDS: METOPROLOL TARTRATE 50 MG TABLET PO SCH ×3 (14:03→20:50)
[2020-07-06] MEDS: LOSARTAN 50 MG TABLET PO SCH ×2 (14:04→14:57)
[2020-07-06] MEDS ORDERED: INSULIN LISPRO 1 UNIT/0.01 ML UNIT SQ ONE (18:38)
[2020-07-06] MEDS ORDERED: METOPROLOL TARTRATE 50 MG TABLET PO SCH (21:00)
[2020-07-07] MEDS: oxyCODONE HCL 5 MG TABLET PO PRN ×3 (02:43→20:43)
[2020-07-07] MEDS: HYDROmorphone 0.5 MG/0.5 ML SYRINGE IV PRN (04:40)
[2020-07-07] MEDS: PIPERACILLIN SODIUM/TAZOBACTAM 2.25 GM in DEXTROSE 5% IN WATER 50 ML IV SCH ×4 (05:56→23:37)
[2020-07-07] MEDS: 0.9 % SODIUM CHLORIDE 1,000 ML IV SCH ×3 (05:56→16:31)
[2020-07-07] MEDS: 0.9 % SODIUM CHLORIDE 10 ML SYRINGE IV SCH ×3 (05:57→20:44)
[2020-07-07 06:51] LABS: Basophils # (Auto) 0.02 K/mcL (0.00-0.30); Basophils % (Auto) 0.2 % (0.0-2.0); Eosinophils # (Auto) 0 K/mcL (0.00-0.70); Eosinophils % (Auto) 0 % (0.0-7.0); Hematocrit 42.2 % (34.1-44.9); Hemoglobin 12.8 g/dL (11.2-15.7); Lymphocytes # (Auto) 1.37 K/mcL (1.50-4.80); Lymphocytes % (Auto) 16.7 % (15.5-49.0); Mean Cell Volume 94.4 fL (80.0-100.0); Mean Corpuscular HGB Conc 30.3 g/dL (31.0-36.0); Mean Platelet Volume 10.7 fL (7.4-10.4); Monocytes # (Auto) 0.91 K/mcL (0.10-0.90); Monocytes % (Auto) 11.1 % (1.0-12.0); Platelet Count 170 K/mcL (140-440); RBC 4.47 M/mcL (3.59-5.38); Red Cell Distribution Width 12.8 % (11.5-14.5); WBC 8.2 K/mcL (4.50-11.00)
[2020-07-07 07:02] LABS: ALT/SGPT 258 U/l (0-40); AST/SGOT 176 U/l (0-37); Albumin 2.8 gm/dL (3.2-5.2); Albumin/Globulin Ratio 0.8 (1.0-2.3); Alkaline Phosphatase 189 U/L (39-117); Blood Urea Nitrogen 30 mg/dl (8-23); Calcium 6.8 mg/dl (8.6-10.4); Carbon Dioxide 20 mmol/L (22-30); Chloride 100 mmol/L (96-108); Globulin 3.5 gm/dL (2.2-3.7); Glomerular Filtration Rate 35; Glucose 387 mg/dL (70-105); Lactate Dehydrogenase 286 U/L (94-250); Triglycerides 89 mg/dl (<150); Uric Acid 5.5 mg/dL (2.5-8.0)
[2020-07-07 07:09] LABS: Bilirubin,Direct 0.5 mg/dL (0.0-0.3); Phosphorous 2.2 mg/dL (2.7-4.5)
[2020-07-07] MEDS ORDERED: ISOSORBIDE MONONITRATE 30 MG TAB.XL.24H PO SCH (09:00)
[2020-07-07] MEDS ORDERED: LOSARTAN 50 MG TABLET PO SCH (09:00)
[2020-07-07] MEDS ORDERED: TORSEMIDE 10 MG TABLET PO SCH (09:00)
[2020-07-07] MEDS: OMEPRAZOLE 20 MG CAPSULE PO SCH (09:04)
[2020-07-07] MEDS: INSULIN LISPRO 1 UNIT/0.01 ML UNIT SQ SCH ×4 (09:04→20:43)
[2020-07-07] MEDS: TORSEMIDE 10 MG TABLET PO SCH (09:04)
[2020-07-07] MEDS: ISOSORBIDE MONONITRATE 30 MG TAB.XL.24H PO SCH (09:05)
[2020-07-07] MEDS: LOSARTAN 50 MG TABLET PO SCH (09:05)
[2020-07-07] MEDS: METOPROLOL TARTRATE 50 MG TABLET PO SCH ×2 (09:05→20:43)
--- NOTE | 2020-07-07 15:05 | General Surgery Progress Note ---
SUBJECTIVE Subjective Patient information: Note initiated : 07/07/20 at 3:00 pm Service Date, if different from initiated Date: [] Patient: Jessica Mendoza 70 y/o F admitted on 07/04/20 for Abd Pain Radiates To Back. Chief Complaint: [] Principal diagnosis: acute cholecystitis Interval history: patient is stable and improved. Her pain is fairly well controlled on oxycodone. Her bilirubin has decreased to 1 and her OT PT and alkaline phosphatase all decreasing. Based on this she may not need to have ERCP. Discussed with the patient concerning her Love catheter and she wishes to keep it intact. I will have case management to determine if she will need home health for management of her Love catheter. She is totally incontinent if the catheter is not implants. Constitutional Vitals: Vital Signs Temp Pulse Resp BP Pulse Ox 97.7 F 66 18 136/62 93 07/07/20 12:00 07/07/20 12:00 07/07/20 12:00 07/07/20 12:00 07/07/20 12:00 Period Temp Pulse Resp BP Sys/Garcia Pulse Ox Last 24 Hr 97.4 F-98.6 F 63-78 - 115-153/53-68 90-98 Intake and Output 07/07/20 07/07/20 07/07/20 05:59 13:59 21:59 Intake Total 1090 1380 Output Total 1025 525 Balance 65 855 Intake & Output: Intake & Output 07/07/20 07/07/20 07/07/20 05:59 13:59 21:59 Intake Total 1090 1380 Output Total 1025 525 Balance 65 855 Intake: IV 50 100 Zosyn 2.25 gm In Dextrose 5% in 50 100 Water 50 ml @ 100 mls/hr IV Q6H [facility] Rx#:[id number] Oral 1040 1280 Output: Drainage 75 50 Right Upper Abdomen JOHN Drain 75 50 Urine Catheter Amount 950 475 Other: Meal snack Lunch Percent of Meal Consumed 100% 50% Feeding Ability Independent Urine Appearance Clear Clear Mucous Threads Mucous Threads Uretheral (Love) Clear Mucous Threads Urine Color Dark Yellow Bright Yellow Uretheral (Love) Bright Yellow Urine Odor Normal Uretheral (Love) Normal Head Head exam: Present atraumatic, normal inspection and normocephalic Eye Eye exam: Present EOMI, normal appearance and PERRL; Absent scleral icterus Pupils: Present normal accommodation ENT ENT exam: Present mucous membranes moist and normal oropharynx Neck Neck exam: Present full ROM and normal inspection; Absent lymphadenopathy, tenderness and thyromegaly Respiratory Respiratory exam: Present normal respiratory exam and CTAB; Absent rales, rhonchi and wheezes Cardiovascular Cardiovascular exam: Present normal rate and rhythm, RRR, +S1 and +S2 GI/Abdominal GI/Abdominal exam: Present normal bowel sounds, soft and tenderness (right upper quadrant and epigastric tenderness; port sites look good; JOHN drainage is serosanguineous) Extremities Exam Extremities exam: Present full ROM, pedal edema (chronic stasis edema) and tenderness (tenderness lower legs and areas of stasis edema) Back Exam Back exam: Present full ROM; Absent tenderness Psychiatric Psychiatric exam: Present anxious, normal affect and normal mood A/P Assessment and plan (1) Acute cholecystitis: Status: Acute (2) Warfarin anticoagulation: Status: Acute (3) 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
[2020-07-08] MEDS: 0.9 % SODIUM CHLORIDE 1,000 ML IV SCH ×4 (00:57→10:57)
[2020-07-08] MEDS: PIPERACILLIN SODIUM/TAZOBACTAM 2.25 GM in DEXTROSE 5% IN WATER 50 ML IV SCH ×3 (06:10→17:51)
[2020-07-08 06:14] LABS: Basophils # (Auto) 0.02 K/mcL (0.00-0.30); Basophils % (Auto) 0.2 % (0.0-2.0); Eosinophils # (Auto) 0.26 K/mcL (0.00-0.70); Eosinophils % (Auto) 2.3 % (0.0-7.0); Hematocrit 41.4 % (34.1-44.9); Hemoglobin 12.5 g/dL (11.2-15.7); Lymphocytes # (Auto) 2.58 K/mcL (1.50-4.80); Lymphocytes % (Auto) 23.2 % (15.5-49.0); Mean Cell Volume 95.2 fL (80.0-100.0); Mean Corpuscular HGB Conc 30.2 g/dL (31.0-36.0); Mean Platelet Volume 10.5 fL (7.4-10.4); Monocytes # (Auto) 1.14 K/mcL (0.10-0.90); Monocytes % (Auto) 10.3 % (1.0-12.0); Platelet Count 175 K/mcL (140-440); RBC 4.35 M/mcL (3.59-5.38); WBC 11.1 K/mcL (4.50-11.00)
[2020-07-08] MEDS: OMEPRAZOLE 20 MG CAPSULE PO SCH (08:20)
[2020-07-08] MEDS: INSULIN LISPRO 1 UNIT/0.01 ML UNIT SQ SCH ×3 (08:20→17:14)
[2020-07-08] MEDS: oxyCODONE HCL 5 MG TABLET PO PRN ×3 (09:03→18:55)
[2020-07-08] MEDS: 0.9 % SODIUM CHLORIDE 10 ML SYRINGE IV SCH ×2 (09:40→13:59)
[2020-07-08 09:42] LABS: ALT/SGPT 169 U/l (0-40); AST/SGOT 68 U/l (0-37); Albumin 2.8 gm/dL (3.2-5.2); Albumin/Globulin Ratio 0.8 (1.0-2.3); Alkaline Phosphatase 159 U/L (39-117); Bilirubin,Direct 0.3 mg/dL (0.0-0.3); Bilirubin,Total 0.7 mg/dL (0.0-1.0); Blood Urea Nitrogen 34 mg/dl (8-23); Calcium 6.5 mg/dl (8.6-10.4); Carbon Dioxide 21 mmol/L (22-30); Chloride 103 mmol/L (96-108); Globulin 3.4 gm/dL (2.2-3.7); Glomerular Filtration Rate 28; Glucose 156 mg/dL (70-105); Lactate Dehydrogenase 250 U/L (94-250); Phosphorous 1.7 mg/dL (2.7-4.5); Triglycerides 125 mg/dl (<150); Uric Acid 5.7 mg/dL (2.5-8.0)
[2020-07-08] MEDS: METOPROLOL TARTRATE 50 MG TABLET PO SCH (09:47)
[2020-07-08] MEDS: TORSEMIDE 10 MG TABLET PO SCH (09:47)
[2020-07-08] MEDS: ISOSORBIDE MONONITRATE 30 MG TAB.XL.24H PO SCH (09:47)
[2020-07-08] MEDS: LOSARTAN 50 MG TABLET PO SCH (09:48)
--- NOTE | 2020-07-08 12:58 | Surgical Pathology Report ---
HISTOLOGY SPECIMEN MICROSCOPIC DIAGNOSIS GALLBLADDER, CHOLECYSTECTOMY: -- CHRONIC CHOLECYSTITIS. -- CHOLELITHIASIS. (DMT:adj) CLINICAL HISTORY Abdominal pain radiates to back. PROCEDURAL IMPRESSION Acute cholecystitis. GROSS DESCRIPTION Received in formalin labeled gallbladder, is a pink-her gallbladder measuring 8 x 3.5 x 2 cm. The specimen is opened near the cystic duct and there is an opening along the hepatic bed region that measures 1.4 x 1 cm. There is a metal clip present on the cystic duct. Upon opening, there are multiple black-her friable stone fragments with maximum dimensions of 0.2 to 0.8 cm. The mucosal surface is her and smooth and the wall thickness is up to 0.4 cm. Nuisance Wildlife Trapper sections in one cassette. (RLF:adj) Electronically Signed by: Toby Hoffman M.D.
--- NOTE | 2020-07-08 17:24 | Discharge Summary ---
Discharge Provider Provider Patient information: Note initiated : 07/08/20 at 5:20 pm Service Date, if different from initiated Date: [] Patient: Jessica Mendoza 70 y/o F admitted on 07/06/20 for Abd Pain Radiates To Back. Chief Complaint: [] Date of admission: 07/06/20 10:54 Discharge date: 07/08/20 Primary care physician: Serafin Bender M.D., F.A.A.F.P. Admitting clinician: Vinh Santoyo Attending physician on admission: Vinh Santoyo Consults: 07/04/20 Consult to Physician [CONS] Stat Comment: Consulting Provider: Vinh Santoyo Reason For Exam: Physician to Consult Attending physician on discharge: Vinh Santoyo Discharging clinician: Vinh Santooy COURSE Hospital Course Hospital course: 70-year-old female who presented with acute abdominal pain secondary to acute cholecystitis with cholelithiasis. She also had elevated transaminases with mild elevation of bilirubin. We tried to do MRCP but she was too large for the machine. Laparoscopic cholecystectomy was performed on 06 July 2020. Cholangiogram could not be done because of severe inflammation and scarring of the cystic duct. She has been followed for the past 2 days and her liver functions have trended down. Her bilirubin is down to 0.7 and her alkaline phosphatase is down to 159 with SGOT of 68. It is probable that if she had a small stone that she has passed it and should not necessitate an ERCP. patient is clinically stable for discharge home. Discharge diagnosis: acute cholecystitis with cholelithiasis Secondary discharge diagnosis: chronic kidney disease Diabetes mellitus Reason for admission: acute cholecystitis Procedures: laparoscopic cholecystectomy Pertinent studies/significant findings: as noted above Complications: none Time Spent with Patient Time attestation: Total time spent providing and/or coordinating discharge services: Physical Examination Vital Signs Vital signs: Temp Pulse Resp BP Pulse Ox 99.9 F H 78 18 115/54 93 07/08/20 16:00 07/08/20 16:00 07/08/20 16:00 07/08/20 16:00 07/08/20 16:00 General physical appearance General physical exam: well developed, well nourished, moderate distress, moderate pain and obese Eyes Eye exam: PERRL and normal ocular movement; negative icteric ENT ENT exam: normal mucosa, no hearing loss and no congestion Head Head exam IM: Present atraumatic, normal inspection and normocephalic Neck Neck exam: no masses, no bruits, trachea midline, no lymphadenopathy and no venous distension Cardiovascular Cardiovascular exam IM: Present normal rate and rhythm, RRR, +S1 and +S2; Absent JVD Respiratory Respiratory exam: normal expansion, normal respiratory effort, clear to percussion and clear to auscultation Abdomen Abdomen: Present tender (right upper quadrant epigastric tenderness) Integumentary Integumentary: Present no rash, no growths, no abnormal pigmentation and other Neurologic Neurologic: Present normal coordination and normal sensation Musculoskeletal Musculoskeletal: Present normal gait, normal posture and other (chronic stasis changes with healed ulceration left lower extremity from previous injury) Psychiatric Psychiatric: Present oriented to time, oriented to person, oriented to place, speech is normal and memory intact; Absent other Discharge Plan Patient/Caregiver Discharge Instructions Activity: increase activity as tolerated Diet: Low Fat Instructions: Cholecystitis (DC), Urinary Tract Infection in Women (DC), Laparoscopic Cholecystectomy (DC) Prescriptions: New oxycodone-acetaminophen [Endocet] 10-325 mg Tablet 1 tab PO Q4H PRN (Reason: Pain) Qty: 60 RF: 0 Continued (DME) blood-glucose meter kit See Dose Instructions .ROUTE .MEDSUPPLY Qty: 1 RF: 0 metoprolol tartrate 50 mg tablet 50 mg PO BID Qty: 60 RF: 12 isosorbide mononitrate 30 mg tablet extended release 24 hr 30 mg PO DAILY Qty: 90 RF: 3 losartan 50 mg tablet 50 mg PO QDAY Qty: 90 RF: 3 Lantus Solostar U-100 Insulin 100 unit/mL (3 mL) insulin pen 45 unit SUB-Q QDAY RF: 0 cyanocobalamin (vitamin B-12) [Vitamin B-12] 1,000 mcg tablet 1,000 mcg PO QDAY RF: 0 denosumab 60 mg/mL syringe 60 mg SUB-Q [id number] Qty: 1 RF: 0 garcinia cambogia 1 tab PO TID RF: 0 torsemide 10 mg tablet 10 mg PO QDAY Qty: 30 RF: 3 omeprazole 20 mg capsule,delayed release(DR/EC) 20 mg PO DAILY RF: 0 No Action warfarin 2.5 mg tablet See Rx Instructions .ROUTE .COMPLEX Qty: 60 RF: 2 warfarin [Jantoven] 7.5 mg tablet 7.5 mg PO WEEKLY RF: 0 Follow Up Plan Follow up with: Serafin Bender MD, FAAFP [Primary Care Provider] - (Contact the office on Monday 07/09 to schedule.) Vinh Santoyo MD [Physician] - Patient Disposition: Home, Self-Care Prognosis: Good Rehab Potential: Good Pending Pending Pending: Resuscitation Status Full Code Diet GI Soft/Transitional Start Sun Jul 07 800 Diagnostic Test (Pha) (Accu-Chek) 1 each FS ACHS [facility] Last Admin: 07/08/20 16:57 Dose: 1 each Documented by: ANITA Cosigned by: KINSEY Admin: 07/08/20 11:05 Dose: 1 each Documented by: ANITA Cosigned by: KINSEY Admin: 07/08/20 08:21 Dose: 1 each Documented by: ANITA Cosigned by: KINSEY Admin: 07/07/20 20:44 Dose: 1 each Documented by: Admin: 07/07/20 17:29 Dose: 1 each Documented by: ANITA Cosigned by: TOM Admin: 07/07/20 12:25 Dose: 1 each Documented by: Admin: 07/07/20 09:01 Dose: 1 each Documented by: Admin: 07/06/20 20:06 Dose: 1 each Documented by: Admin: 07/06/20 18:36 Dose: 1 each Documented by: TOM Hydromorphone HCl (Dilaudid) 0.5 - 1 mg IV Q2HP PRN; Protocol PRN Reason: Per Pain Protocol Last Admin: 07/07/20 04:40 Dose: 0.5 mg Documented by: Admin: 07/06/20 23:29 Dose: 0.5 mg Documented by: Admin: 07/06/20 13:46 Dose: 0.5 mg Documented by: TOM Sodium Chloride (Sodium Chloride 0.9%) 1,000 mls @ 125 mls/hr IV .Q8H [facility] Last Admin: 07/08/20 10:57 Dose: Not Given Documented by: Admin: 07/08/20 09:48 Dose: 125 mls/hr Documented by: ANITA Cosigned by: KINSEY Infusion: 07/08/20 08:57 Dose: 125 mls/hr Documented by: ANITA Cosigned by: KINSEY Admin: 07/08/20 05:04 Dose: Not Given Documented by: Admin: 07/08/20 00:57 Dose: 125 mls/hr Documented by: Infusion: 07/08/20 00:31 Dose: 125 mls/hr Documented by: Admin: 07/07/20 16:31 Dose: 125 mls/hr Documented by: Infusion: 07/07/20 16:31 Dose: 0 mls/hr Documented by: Admin: 07/07/20 12:27 Dose: Not Given Documented by: Admin: 07/07/20 05:56 Dose: Not Given Documented by: Admin: 07/06/20 22:34 Dose: 125 mls/hr Documented by: Infusion: 07/06/20 21:45 Dose: 125 mls/hr Documented by: Admin: 07/06/20 13:45 Dose: 125 mls/hr Documented by: TOM Piperacillin Sod/Tazobactam (Sod 2.25 gm/ Dextrose) 50 mls @ 100 mls/hr IV Q6H [facility] Infusion: 07/08/20 11:35 Dose: 100 mls/hr Documented by: ANITA Cosigned by: KINSEY Admin: 07/08/20 11:05 Dose: 100 mls/hr Documented by: ANITA Cosigned by: KINSEY Infusion: 07/08/20 06:40 Dose: 100 mls/hr Documented by: ANITA Cosigned by: KINSEY Admin: 07/08/20 06:10 Dose: 100 mls/hr Documented by: Infusion: 07/08/20 00:07 Dose: 100 mls/hr Documented by: Admin: 07/07/20 23:37 Dose: 100 mls/hr Documented by: Infusion: 07/07/20 18:00 Dose: 0 mls/hr Documented by: Admin: 07/07/20 17:30 Dose: 100 mls/hr Documented by: ANITA Cosigned by: TOM Infusion: 07/07/20 12:56 Dose: 0 mls/hr Documented by: ANITA Cosigned by: IQRA Admin: 07/07/20 12:26 Dose: 100 mls/hr Documented by: Infusion: 07/07/20 06:26 Dose: 0 mls/hr Documented by: Admin: 07/07/20 05:56 Dose: 100 mls/hr Documented by: Infusion: 07/07/20 00:00 Dose: 0 mls/hr Documented by: Admin: 07/06/20 23:29 Dose: 100 mls/hr Documented by: Infusion: 07/06/20 19:07 Dose: 100 mls/hr Documented by: Admin: 07/06/20 18:37 Dose: 100 mls/hr Documented by: Infusion: 07/06/20 14:16 Dose: 0 mls/hr Documented by: Admin: 07/06/20 13:46 Dose: 100 mls/hr Documented by: TOM Insulin Human Lispro (Humalog) 0 unit SQ ACHS [facility]; Protocol Last Admin: 07/08/20 17:14 Dose: 15 unit Documented by: ANITA Cosigned by: KINSEY Admin: 07/08/20 11:24 Dose: 6 unit Documented by: ANITA Eisenbergigned by: KINSEY Admin: 07/08/20 08:20 Dose: 3 unit Documented by: ANITA Cosigned by: KINSEY Admin: 07/07/20 20:43 Dose: 12 unit Documented by: Admin: 07/07/20 17:29 Dose: 12 unit Documented by: ANITA Cosigned by: TOM Admin: 07/07/20 12:26 Dose: 18 unit Documented by: Admin: 07/07/20 09:04 Dose: 15 unit Documented by: Admin: 07/06/20 20:49 Dose: 18 unit Documented by: Admin: 07/06/20 18:36 Dose: 9 unit Documented by: TOM Isosorbide Mononitrate (Imdur) 30 mg PO DAILY [facility] Last Admin: 07/08/20 09:47 Dose: 30 mg Documented by: ANITA Cosigned by: KINSEY Admin: 07/07/20 09:05 Dose: 30 mg Documented by: Admin: 07/06/20 14:03 Dose: 30 mg Documented by: TOM Losartan Potassium (Cozaar) 50 mg PO QDAY [facility] Admin: 07/08/20 09:48 Dose: 50 mg Documented by: ANITA Cosigned by: KINSEY Admin: 07/07/20 09:05 Dose: 50 mg Documented by: Admin: 07/06/20 14:04 Dose: 50 mg Documented by: TOM Metoprolol Tartrate (Lopressor) 50 mg PO BID [facility] Admin: 07/08/20 09:47 Dose: 50 mg Documented by: ANITA Cosigned by: KINSEY Admin: 07/07/20 20:43 Dose: 50 mg Documented by: Admin: 07/07/20 09:05 Dose: 50 mg Documented by: Admin: 07/06/20 20:50 Dose: 50 mg Documented by: Admin: 07/06/20 14:03 Dose: 50 mg Documented by: TOM Omeprazole (Prilosec) 20 mg PO ACB [facility] Admin: 07/08/20 08:20 Dose: 20 mg Documented by: ANITA Cosigned by: KINSEY Admin: 07/07/20 09:04 Dose: 20 mg Documented by: TOM Oxycodone HCl (Roxicodone) 10 mg PO Q4HP PRN; Protocol PRN Reason: Per Pain Protocol Last Admin: 07/08/20 15:01 Dose: 10 mg Documented by: Admin: 07/08/20 09:03 Dose: 10 mg Documented by: [email or web address] Admin: 07/07/20 20:43 Dose: 10 mg Documented by: Admin: 07/07/20 12:26 Dose: 10 mg Documented by: Admin: 07/07/20 02:43 Dose: 10 mg Documented by: JOSÉ Sodium Chloride (Saline Flush) 10 ml IV Q8 [facility] Admin: 07/08/20 13:59 Dose: Not Given Documented by: Admin: 07/08/20 09:40 Dose: Not Given Documented by: Admin: 07/07/20 20:44 Dose: 10 ml Documented by: Admin: 07/07/20 13:26 Dose: Not Given Documented by: Admin: 07/07/20 05:57 Dose: 10 ml Documented by: Admin: 07/06/20 20:50 Dose: Not Given Documented by: Admin: 07/06/20 13:48 Dose: 10 ml Documented by: TOM Torsemide (Demadex) 10 mg PO QDAY [facility] Last Admin: 07/08/20 09:47 Dose: 10 mg Documented by: ANITA Cosigned by: KINSEY Admin: 07/07/20 09:04 Dose: 10 mg Documented by: Admin: 07/06/20 14:03 Dose: 10 mg Documented by: TOM Shift Summary 07/08/20 16:02 Shift Summary by Jenise Troncoso pt admitted on 07/[address] santoyo performed a lap ramon on 07/05. A&Ox4. fine crackles bilaterally in lower lung lobes. pt has four lap sites and a jessica drain site. surgical sites are covered with ivana and Tegaderm, small amount of sanguineness drainage. dressing changed yesterday. pt reciveing oxycodone 10mg Q4. up with +1 assist, fww and gait belt. pt has accu checks and has humalog ordered via sliding scale. JESSICA on RLQ patent and draining. Love catheter dc today at 1330. Pt bladder scanning for 0mls with no discomfort. pt wears 2L NC when sleeping. pt discharging today. Initialized on 07/08/20 16:02 - END OF NOTE
--- NOTE | 2020-07-15 09:47 | Operative Note ---
DATE OF OPERATION: 07/06/2020 PREOPERATIVE DIAGNOSIS: Acute cholecystitis with cholelithiasis. POSTOPERATIVE DIAGNOSIS: Acute cholecystitis with cholelithiasis. PROCEDURE: Laparoscopic cholecystectomy with attempted cholangiogram. SURGEON: Vinh Felipe M.D. FINDINGS: Acute severe inflammation of the gallbladder with small stones filling the entire gallbladder. Severely inflamed, scarred cystic duct with lumen which could not be cannulated for cholangiogram. DESCRIPTION OF PROCEDURE: Under general anesthesia, patient's abdomen was prepped and draped in a sterile field. Timeout procedure was carried out as per protocol. Supraumbilical midline incision was made and Veress needle was inserted. Abdomen was insufflated with 2 liters of CO2. A 12 mm port was placed. Laparoscope was placed. There was severe inflammation and the gallbladder initially could not be seen. Under videoscopic guidance, a 12 mm port and two 5 mm ports were placed in the right subcostal region. Using blunt dissection, the omentum and colon were from the gallbladder. A tensely-dilated, inflamed gallbladder was encountered. It could not be aspirated because it was filled with thick sludge and small stones. It was grasped and positioned. Cystic duct was severely inflamed and thickened. It was dissected back to the wall of the gallbladder. A small incision was made in the cystic duct and the duct was clipped proximal to this incision. The lumen was extremely small and the smallest cholangiocath could not be placed in the lumen of the cystic duct. After about 20 minutes, I elected to abort this attempt. The cystic duct was divided using an Endo SARANYA stapler. Cystic artery was clipped with four clips and divided. The gallbladder was then from the infrahepatic bed using primarily blunt dissection. Hemostasis was achieved with electrocautery. The gallbladder was placed in an Endopouch and retrieved. A 10 Cesar drain was placed in the subhepatic space and brought out through the most lateral port site. Further irrigation was carried out. The ports were removed and the fascia at the umbilicus was closed with 0 Vicryl. The other incisions were closed with ivana on the skin. Tegaderm dressings were placed. The patient tolerated the procedure well. Drain was secured with 3-0 nylon. The patient was awakened, transferred to a bed, and taken to the postanesthetic care unit in stable, satisfactory condition. LCS:anna Job ID: [id number] Doc ID: [id number] Vinh Felipe M.D.
== END 2020-07-08 18:32 | disposition home or self-care (01) | DRG 418 ==
LOC: ED 13:54 → MEDSUR 13:54
PROVIDERS: ADMIT Family Medicine Adult Medicine; ATTEND Family Medicine Adult Medicine

== ENCOUNTER 2021-08-12 14:37 | Observation (INO) ==
[2021-08-12] MEDS ORDERED: 0.9 % SODIUM CHLORIDE 1,000 ML IV ONE (14:56)
--- NOTE | 2021-08-12 14:58 | Emergency Department Note ---
Syncope HPI General Chief Complaint: Syncope Stated Complaint: syncope, back pain Time Seen by Provider: 08/12/21 14:56 Source: patient Mode of arrival: ambulatory Limitations: no limitations History of Present Illness HPI Narrative: This is a 16-year-old female patient with a history of CAD, atrial fibrillation on chronic anticoagulation, and insulin-dependent diabetes who presents with syncopal episode today. This was witnessed by her daughter. It was preceded by some dizziness. She denies chest pain or heart palpitations. Daughter states that she was turning away from the door and then passed out falling backward hitting her head on the ground. She was allegedly not breathing so the daughter performed several rounds of CPR. An EKG shows normal sinus rhythm with no ischemic ST findings. No changes to medications. No increase in lower extremity edema, which she states is at baseline. Has not missed her doses of rivaroxaban. Her blood sugars were not checked at the time of her syncopal episode, but her tisfc-[id number] is 115 mg/DL here in the ER today. Previous clinical recruiter was Dr. Lawson. It has been sometime since she has been evaluated. Related Data Home Medications Medication Instructions Recorded Confirmed omeprazole 20 mg PO DAILY 07/04/20 06/17/21 acetaminophen 500 mg capsule 500 mg PO BID PRN cap 10/01/20 06/17/21 vitamin B complex 1 tab PO QDAY 11/07/20 06/17/21 Previous Rx's Medication Instructions Recorded blood-glucose meter #1 each 05/02/19 denosumab 60 mg/mL subcutaneous 60 mg SUB-Q [id number] #1 ml 12/04/19 syringe metoprolol tartrate 25 mg tablet 25 mg PO BID #60 tab 11/07/20 torsemide 10 mg tablet 10 mg PO QDAY #30 tab 11/27/20 nitrofurantoin 100 mg PO BID #10 cap 12/11/20 monohydrate/macrocrystals 100 mg capsule insulin detemir U-100 100 unit/mL See Rx Instructions .ROUTE 01/27/21 (3 mL) subcutaneous pen .COMPLEX #15 milliliter rivaroxaban 2.5 mg tablet 2.5 mg PO BID #30 tab 03/20/21 insulin lispro 100 unit/mL 1 sliding scale dose SUBCUT 04/10/21 subcutaneous cartridge USEASDIRECTD #15 ml isosorbide mononitrate 30 mg 30 mg PO DAILY #90 tab 04/15/21 tablet,extended release 24 hr losartan 50 mg tablet 50 mg PO QDAY #90 tab 05/27/21 Allergies Allergy/AdvReac Type Severity Reaction Status Date / Time lisinopril AdvReac Intermediate Anxiety Verified 06/17/21 13:28 sulfamethoxazole AdvReac Mild Other Verified 06/17/21 13:28 [From Bactrim] trimethoprim [From Bactrim] AdvReac Mild Other Verified 06/17/21 13:28 aspirin AdvReac Unknown bleeding Verified 06/17/21 13:28 in eye Review of Systems ROS ROS Narrative: Narrative: All systems ED: reviewed and negative except as stated. [facility] Narrative Patient History Narrative: Narrative: Medical/Surgical/Family History All Active Problems (Updated 08/12/21 @ 17:57 by Kathy Roach PA-C) Syncope and collapse (Acute) Right knee pain (Acute) Diabetes mellitus with hyperglycemia (Acute) Hypertensive renal disease, benign (Acute) Analgesic nephropathy (Acute) CKD stage G3b/A2, GFR 30-44 and albumin creatinine ratio 30-299 mg/g (Acute) Medicare annual wellness visit, initial (Acute) Warfarin anticoagulation (Acute) Acute cholecystitis (Acute) CKD stage G4/A3, GFR 15-29 and albumin creatinine ratio >300 mg/g (Acute) 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 (Chronic) Osteoporosis (Chronic) Anticoagulated on Coumadin (Chronic) Hyperkalemia (Acute) CKD (chronic kidney disease), stage III (Chronic) H/O: hysterectomy (Acute) H/O colonoscopy (Acute) 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) Hyperlipidemia (Acute) Hypertension, essential (Chronic) Gestational diabetes mellitus (Acute) GERD (gastroesophageal reflux disease) (Acute) Edema (Acute) CVA (cerebral vascular accident) (Acute) Cataracts, bilateral (Acute) Anemia (Acute) Medical History (Updated 08/12/21 @ 17:57 by Kathy Roach PA-C) Acute on chronic kidney failure Altered mental status Anemia Cataracts, bilateral CKD (chronic kidney disease) CKD (chronic kidney disease), stage III CVA (cerebral vascular accident) Diabetes mellitus with hyperglycemia Edema GERD (gastroesophageal reflux disease) Gestational diabetes mellitus Hyperkalemia Hyperkalemia Hyperlipidemia Hypertension, essential Well-controlled on current regimen Hypertensive renal disease penitentiary use of drug Medicare annual wellness visit, initial Osteoporosis GI issue preclude Phosphonates Recheck Vit D2 levels and PTHi Prolia 60ug SQ q 6 months Pneumonia involving right lung Renal insufficiency Retinopathy due to secondary diabetes Right knee pain Surgical History H/O colonoscopy HP H/O: hysterectomy History of laparoscopic cholecystectomy 07/06/2020 Family History Unknown Type 2 diabetes mellitus Hay fever Pulmonary hypertension Rheumatoid arthritis Social History Smoking Status: Never smoker Alcohol Intake Frequency: does not drink Exam Narrative Narrative: General: AOx3, NAD, nontoxic appearing. Pleasant and conversant. HEENT: PERRLA, EOMI, normocephalic. Moist mucous membranes. Normal facies Chest: Symmetric, no pain to palpation Respiratory: Lungs clear to auscultation bilaterally. No respiratory distress. Unlabored breathing. Heart: Regular rate and rhythm, no murmurs/clicks/rubs. Abdomen: Non-tender, Non distended. No organomegaly. Extremities: Warm and well perfused. Trace pitting edema to the right lower extremity. DP 2+ bilaterally. No venous stasis. Neuro: No focal deficits. Cranial nerves II-XII normal. Visual bustamante intact. Skin: Warm dry, no rashes or lesions, no cyanosis. Psych: Normal mood and affect Heme/Lymph: No abnormal bruising General Limitations: no limitations Course Course Course Narrative: 71-year-old female with multiple medical comorbidities presents with syncopal episode Reevaluation(s) Reevaluation #1: Obtain CBC, CMP, troponin, EKG, chest x-ray Give 1 L IV fluids Obtain head CT to rule out acute intracranial bleeding Orthostatic vital signs Reevaluation #2: Orthostatic vital signs are negative CBC without leukocytosis, no electrolyte derangement Troponin is less than 0.01, EKG shows normal sinus rhythm with no ischemic ST findings. There are nonspecific ST changes in aVL and 1 with scooped T waves. Left axis and normal intervals. Head CT without acute intracranial hemorrhage Chest x-ray Reevaluation #3: Patients Fijian syncope risk score is moderate risk Patient meets criteria for observation and she would like to be admitted for further work-up. Last echocardiogram that I see available in chart review is from 2013 with an EF of 60%. Vital Signs Vital signs: Vital Signs Temperature 97.2 F 08/12/21 14:48 Pulse Rate 77 08/12/21 14:48 Respiratory Rate 16 08/12/21 14:48 Blood Pressure 156/68 08/12/21 14:48 Pulse Oximetry (%) 98 08/12/21 14:48 Temperature 97.2 F 08/12/21 14:48 Pulse Rate 74 08/12/21 16:31 Respiratory Rate 15 08/12/21 16:31 Blood Pressure 143/53 08/12/21 16:31 Pulse Oximetry (%) 100 08/12/21 16:31 MDM MDM Narrative Medical decision making narrative: Syncope So far the patient's work-up has been negative. She had a negative troponin and a normal EKG. I am repeating a troponin and EKG to assure that there have been no intermediate changes. In addition, she's had a negative laboratory work-up with stable renal function. No evidence of hypoglycemia during this evaluation. Orthostatics are negative. Head CT without intracranial hemorrhage. Urinalysis is still pending. Fijian syncope risk score is 2, medium risk 5.1% serious adverse event at 30 days. Patient meets criteria for admission for observation and I have reached out to the hospitalist for admission. The patient does not feel comfortable discharging to home and is agreeable to an observation admission. Lab Data Result diagrams: 08/12/21 15:14 08/12/21 14:56 Labs: Lab Results 08/12/21 08/12/21 08/12/21 Range/Units 14:56 14:56 15:14 WBC 6.8 (4.5-11.0) K/mcL RBC 4.53 (3.59-5.38) M/mcL Hgb 13.3 (11.2-15.7) g/dL Hct 41.1 (34.1-44.9) % MCV 90.7 (80.0-100.0) fL MCH 29.4 (26.0-34.0) pg MCHC 32.4 (31.0-36.0) g/dL RDW 12.3 (11.5-14.5) % Plt Count 234 (140-440) K/mcL MPV 10.1 (7.4-10.4) fL Neut % (Auto) 45.7 (38.0-78.0) % Lymph % (Auto) 40.2 (15.5-49.0) % [place] % (Auto) 11.0 (1.0-12.0) % Eos % (Auto) 2.7 (0.0-7.0) % Baso % (Auto) 0.4 (0.0-2.0) % Lymph # (Auto) 2.73 (1.50-4.80) K/mcL [place] # (Auto) 0.75 (0.10-0.90) K/mcL Eos # (Auto) 0.18 (0.00-0.70) K/mcL Baso # (Auto) 0.03 (0.00-0.30) K/mcL Absolute Neutrophils 3.10 (1.80-8.00) K/mcL Sodium 137 (133-145) mmol/L Potassium 4.5 (3.3-5.1) mmol/L Chloride 99 (96-108) mmol/L Carbon Dioxide 26 (22-30) mmol/L Anion Gap 12.0 (8.0-16.0) BUN 39 H (8-23) mg/dL Creatinine 1.3 H (0.6-1.1) mg/dL GFR Calculation 41 Glucose 113 H (70-105) mg/dL Calcium 9.2 (8.6-10.4) mg/dL Total Bilirubin 0.3 (0.1-1.0) mg/dL AST 24 (<32) U/L ALT 19 (<40) U/L Alkaline Phosphatase 107 (39-117) U/L Troponin T (<0.03) ng/mL NT-Pro-B Natriuret Pep 1166.0 H (<125.0) pg/mL Total Protein 7.5 (5.9-8.4) gm/dL Albumin 3.6 (3.2-5.2) gm/dL Globulin 3.9 H (2.2-3.7) gm/dL Albumin/Globulin Ratio 0.9 L (1.0-2.3) 08/12/21 Range/Units 15:14 WBC (4.5-11.0) K/mcL RBC (3.59-5.38) M/mcL Hgb (11.2-15.7) g/dL Hct (34.1-44.9) % MCV (80.0-100.0) fL MCH (26.0-34.0) pg MCHC (31.0-36.0) g/dL RDW (11.5-14.5) % Plt Count (140-440) K/mcL MPV (7.4-10.4) fL Neut % (Auto) (38.0-78.0) % Lymph % (Auto) (15.5-49.0) % [place] % (Auto) (1.0-12.0) % Eos % (Auto) (0.0-7.0) % Baso % (Auto) (0.0-2.0) % Lymph # (Auto) (1.50-4.80) K/mcL [place] # (Auto) (0.10-0.90) K/mcL Eos # (Auto) (0.00-0.70) K/mcL Baso # (Auto) (0.00-0.30) K/mcL Absolute Neutrophils (1.80-8.00) K/mcL Sodium (133-145) mmol/L Potassium (3.3-5.1) mmol/L Chloride (96-108) mmol/L Carbon Dioxide (22-30) mmol/L Anion Gap (8.0-16.0) BUN (8-23) mg/dL Creatinine (0.6-1.1) mg/dL GFR Calculation Glucose (70-105) mg/dL Calcium (8.6-10.4) mg/dL Total Bilirubin (0.1-1.0) mg/dL AST (<32) U/L ALT (<40) U/L Alkaline Phosphatase (39-117) U/L Troponin T < 0.01 (<0.03) ng/mL NT-Pro-B Natriuret Pep (<125.0) pg/mL Total Protein (5.9-8.4) gm/dL Albumin (3.2-5.2) gm/dL Globulin (2.2-3.7) gm/dL Albumin/Globulin Ratio (1.0-2.3) ED POC Tests ED POC Tests: DAMION - SARS Antigen Negative Discharge Plan Patient/Caregiver Discharge Instructions Pt seen by GRAZING EXAMINER/PA only: Yes Clinical Impression: Syncope and collapse Patient Disposition: Xfer As Outpt/Obs ([facility]) Condition: Fair Follow up with: Serafin Bender MD, FAAFP [Primary Care Provider] - Prescriptions: No Action (DME) blood-glucose meter kit See Dose Instructions .ROUTE .MEDSUPPLY Qty: 1 RF: 0 torsemide 10 mg tablet 10 mg PO QDAY Qty: 30 RF: 11 nitrofurantoin monohyd/m-cryst [Macrobid] 100 mg capsule 100 mg PO BID Qty: 10 RF: 0 Levemir FlexTouch U-100 Insuln 100 unit/mL (3 mL) insulin pen See Rx Instructions .ROUTE .COMPLEX Qty: 15 RF: 5 Xarelto 2.5 mg tablet 2.5 mg PO BID Qty: 30 RF: 12 isosorbide mononitrate 30 mg tablet extended release 24 hr 30 mg PO DAILY Qty: 90 RF: 3 losartan 50 mg tablet 50 mg PO QDAY Qty: 90 RF: 3 vitamin B complex [B Complex-Vitamin B12] Tablet 1 tab PO QDAY RF: 0 metoprolol tartrate 25 mg tablet 25 mg PO BID Qty: 60 RF: 12 Humalog U-100 Insulin 100 unit/mL cartridge 1 sliding scale dose subcut USEASDIRECTD Qty: 15 RF: 7 denosumab 60 mg/mL syringe 60 mg SUB-Q [id number] Qty: 1 RF: 0 acetaminophen 500 mg capsule 500 mg PO BID PRNRF: 0 omeprazole 20 mg capsule,delayed release(DR/EC) 20 mg PO DAILY RF: 0
[2021-08-12 15:54] LABS: Basophils # (Auto) 0.03 K/mcL (0.00-0.30); Basophils % (Auto) 0.4 % (0.0-2.0); Eosinophils # (Auto) 0.18 K/mcL (0.00-0.70); Eosinophils % (Auto) 2.7 % (0.0-7.0); Hematocrit 41.1 % (34.1-44.9); Hemoglobin 13.3 g/dL (11.2-15.7); Lymphocytes # (Auto) 2.73 K/mcL (1.50-4.80); Lymphocytes % (Auto) 40.2 % (15.5-49.0); Mean Cell Volume 90.7 fL (80.0-100.0); Mean Corpuscular HGB Conc 32.4 g/dL (31.0-36.0); Mean Platelet Volume 10.1 fL (7.4-10.4); Monocytes # (Auto) 0.75 K/mcL (0.10-0.90); Neutrophils % (Auto) 45.7 % (38.0-78.0); Platelet Count 234 K/mcL (140-440); RBC 4.53 M/mcL (3.59-5.38); Red Cell Distribution Width 12.3 % (11.5-14.5); WBC 6.8 K/mcL (4.5-11.0)
[2021-08-12 16:18] LABS: ALT/SGPT 19 U/L (<40); AST/SGOT 24 U/L (<32); Albumin 3.6 gm/dL (3.2-5.2); Albumin/Globulin Ratio 0.9 (1.0-2.3); Alkaline Phosphatase 107 U/L (39-117); Bilirubin,Total 0.3 mg/dL (0.1-1.0); Blood Urea Nitrogen 39 mg/dL (8-23); Calcium 9.2 mg/dL (8.6-10.4); Carbon Dioxide 26 mmol/L (22-30); Chloride 99 mmol/L (96-108); Globulin 3.9 gm/dL (2.2-3.7); Glomerular Filtration Rate 41; Glucose 113 mg/dL (70-105)
[2021-08-12] MEDS ORDERED: ACETAMINOPHEN 325 MG TABLET PO ONE (16:43)
--- NOTE | 2021-08-12 17:58 | Internal Med History&Physical ---
HPI History of Present Illness Patient information: Note initiated : 08/12/21 at 5:54 pm Service Date, if different from initiated Date: [] Patient: Jessica Mendoza a 71 y/o F admitted on for syncope, back pain. Chief Complaint: [] History of present illness: Ms. Mendoza is a 71 year old F Patient presents to the ED with syncope. The patient she was in her room sitting in her bed when she got up to go to the bathroom and had diarrhea then went in to walk over to her daughter's room and she got dizzy and passed out. Given ER was unremarkable. She does have a history of A. fib. She said her blood sugar was high this morning and did take some insulin but we do not know what her sugars were at the time of the incident. Laboratory unremarkable. Chinese syncope risk score was a low to medium but daughter was adamant patient be admitted. Orthostatic vital signs in the ED were unremarkable. Review of Systems: Pertinent positives as above. Denies headache/fever/chills/nausea/vomiting/chest or abdominal pain/cough/dyspnea. remaining 10 point review of system reviewed negative PFSH PFSH All Active Problems (Updated 08/12/21 @ 17:57 by Kathy Roach PA-C) Syncope and collapse (Acute) Right knee pain (Acute) Diabetes mellitus with hyperglycemia (Acute) Hypertensive renal disease, benign (Acute) Analgesic nephropathy (Acute) CKD stage G3b/A2, GFR 30-44 and albumin creatinine ratio 30-299 mg/g (Acute) Medicare annual wellness visit, initial (Acute) Warfarin anticoagulation (Acute) Acute cholecystitis (Acute) CKD stage G4/A3, GFR 15-29 and albumin creatinine ratio >300 mg/g (Acute) 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 (Chronic) Osteoporosis (Chronic) Anticoagulated on Coumadin (Chronic) Hyperkalemia (Acute) CKD (chronic kidney disease), stage III (Chronic) H/O: hysterectomy (Acute) H/O colonoscopy (Acute) 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) Hyperlipidemia (Acute) Hypertension, essential (Chronic) Gestational diabetes mellitus (Acute) GERD (gastroesophageal reflux disease) (Acute) Edema (Acute) CVA (cerebral vascular accident) (Acute) Cataracts, bilateral (Acute) Anemia (Acute) Medical History (Updated 08/12/21 @ 17:57 by Kathy Roach PA-C) Acute on chronic kidney failure Altered mental status Anemia Cataracts, bilateral CKD (chronic kidney disease) CKD (chronic kidney disease), stage III CVA (cerebral vascular accident) Diabetes mellitus with hyperglycemia Edema GERD (gastroesophageal reflux disease) Gestational diabetes mellitus Hyperkalemia Hyperkalemia Hyperlipidemia Hypertension, essential Well-controlled on current regimen Hypertensive renal disease FDC use of drug Medicare annual wellness visit, initial Osteoporosis GI issue preclude Phosphonates Recheck Vit D2 levels and PTHi Prolia 60ug SQ q 6 months Pneumonia involving right lung Renal insufficiency Retinopathy due to secondary diabetes Right knee pain Surgical History H/O colonoscopy HP H/O: hysterectomy History of laparoscopic cholecystectomy 07/06/2020 Family History Unknown Type 2 diabetes mellitus Hay fever Pulmonary hypertension Rheumatoid arthritis Social History alcohol intake frequency: does not drink MEDS/ALLERGIES Home Medications and Allergies Home Medications Medication Instructions Recorded Confirmed Type blood-glucose meter #1 each 05/02/19 06/17/21 Rx denosumab 60 mg/mL subcutaneous 60 mg SUB-Q [id number] #1 ml 12/04/19 06/17/21 Rx syringe omeprazole 20 mg PO DAILY 07/04/20 06/17/21 History acetaminophen 500 mg capsule 500 mg PO BID PRN cap 10/01/20 06/17/21 History metoprolol tartrate 25 mg tablet 25 mg PO BID #60 tab 11/07/20 06/17/21 Rx vitamin B complex 1 tab PO QDAY 11/07/20 06/17/21 History torsemide 10 mg tablet 10 mg PO QDAY #30 tab 11/27/20 06/17/21 Rx nitrofurantoin 100 mg PO BID #10 cap 12/11/20 06/17/21 Rx monohydrate/macrocrystals 100 mg capsule insulin detemir U-100 100 unit/mL See Rx Instructions .ROUTE 01/27/21 06/17/21 Rx (3 mL) subcutaneous pen .COMPLEX #15 milliliter rivaroxaban 2.5 mg tablet 2.5 mg PO BID #30 tab 03/20/21 06/17/21 Rx insulin lispro 100 unit/mL 1 sliding scale dose SUBCUT 04/10/21 06/17/21 Rx subcutaneous cartridge USEASDIRECTD #15 ml isosorbide mononitrate 30 mg 30 mg PO DAILY #90 tab 04/15/21 06/17/21 Rx tablet,extended release 24 hr losartan 50 mg tablet 50 mg PO QDAY #90 tab 05/27/21 06/17/21 Rx Allergies Allergy/AdvReac Type Severity Reaction Status Date / Time lisinopril AdvReac Intermediate Anxiety Verified 06/17/21 13:28 sulfamethoxazole AdvReac Mild Other Verified 06/17/21 13:28 [From Bactrim] trimethoprim [From Bactrim] AdvReac Mild Other Verified 06/17/21 13:28 aspirin AdvReac Unknown bleeding Verified 06/17/21 13:28 in eye EXAM Constitutional Vitals: Temp Pulse Resp BP Pulse Ox 97.2 F 74 15 143/53 100 08/12/21 14:48 08/12/21 16:31 08/12/21 16:31 08/12/21 16:31 08/12/21 16:31 Exam: General: Alert, Awake, No acute Distress, obese Eyes/N/T: EOMI, PERRL, dry MM Head/Neck: neck supple, normocephalic atraumatic CV: Irregular, No murmurs, normal s1/s2 Pulm: Clear b/l, no wheezing/rhonchi/rales Abd: soft, nontender, +BS x4 Ext: no clubbing/cyanosis/edema Neuro: Alert, no focal deficits, moves all extremities, CN 2-12 grossly intact, symmetrical strength b/l upper/lower, sensations intact b/l upper/lower Skin: warm/dry DATA Data Completed and Pending Labs: Labs from last 24 hours 08/12/21 08/12/21 08/12/21 17:22 16:25 15:14 WBC RBC Hgb Hct MCV MCH MCHC RDW Plt Count MPV Neut % (Auto) Lymph % (Auto) [place] % (Auto) Eos % (Auto) Baso % (Auto) Lymph # (Auto) [place] # (Auto) Eos # (Auto) Baso # (Auto) Absolute Neutrophils Sodium Potassium Chloride Carbon Dioxide Anion Gap BUN Creatinine GFR Calculation Glucose Calcium Total Bilirubin AST ALT Alkaline Phosphatase Troponin T Pending < 0.01 NT-Pro-B Natriuret Pep Total Protein Albumin Globulin Albumin/Globulin Ratio Urine Color Pending Urine Appearance Pending Urine pH Pending Ur Specific [place] Pending Urine Protein Pending Urine Glucose (UA) Pending Urine Ketones Pending Urine Occult Blood Pending Urine Nitrate Pending Urine Bilirubin Pending Urine Urobilinogen Pending Ur Leukocyte Esterase Pending 08/12/21 08/12/21 08/12/21 15:14 14:56 14:56 WBC 6.8 RBC 4.53 Hgb 13.3 Hct 41.1 MCV 90.7 MCH 29.4 MCHC 32.4 RDW 12.3 Plt Count 234 MPV 10.1 Neut % (Auto) 45.7 Lymph % (Auto) 40.2 [place] % (Auto) 11.0 Eos % (Auto) 2.7 Baso % (Auto) 0.4 Lymph # (Auto) 2.73 [place] # (Auto) 0.75 Eos # (Auto) 0.18 Baso # (Auto) 0.03 Absolute Neutrophils 3.10 Sodium 137 Potassium 4.5 Chloride 99 Carbon Dioxide 26 Anion Gap 12.0 BUN 39 H Creatinine 1.3 H GFR Calculation 41 Glucose 113 H Calcium 9.2 Total Bilirubin 0.3 AST 24 ALT 19 Alkaline Phosphatase 107 Troponin T NT-Pro-B Natriuret Pep 1166.0 H Total Protein 7.5 Albumin 3.6 Globulin 3.9 H Albumin/Globulin Ratio 0.9 L Urine Color Urine Appearance Urine pH Ur Specific [place] Urine Protein Urine Glucose (UA) Urine Ketones Urine Occult Blood Urine Nitrate Urine Bilirubin Urine Urobilinogen Ur Leukocyte Esterase A/P Narrative A/P Narrative: A: *Syncope: -Chinese risk score low-medium *afib: on BB, refuses anticoagulation *DM: *CKD IIIb: *HTN: *GERD: *Obesity: P: -Obs -tele Monitor -Echo -Continue home medications -SSI -ppx: Lovenox Code: CPR okay but no intubation Time Spent With Patient Time: Total time spent is greater than 50% in coordination of care (as documented) at patient's floor/unit and/or counseling patient:
[2021-08-12 18:13] LABS: Appearance,Urine CLEAR (Clear); Bacteria,Urine FEW /hpf (0); Bilirubin,Urine Negative (Negative); Color,Urine STRAW; Culture Indicated,Urine Yes; Glucose,Urine (UA) Negative (Negative); Ketones,Urine Negative (Negative); Leukocyte Esterase,Urine 25 /ug (Negative); Mucus,Urine FEW /hpf; Nitrate,Urine Negative (Negative); Protein,Urine Negative (Negative); Specific Gravity,Urine 1.008 (1.000-1.035); Urine Blood Negative (Negative); Urine RBC 1 /hpf (0-3); Urine Squamous Epithelial Cell < 1 /hpf (0-4); Urine WBC 7 /hpf (0-4); Urobilinogen,Urine Negative
[2021-08-12] MEDS ORDERED: MAGNESIUM SULFATE 2 GM/50 ML BAG IV PRN (21:39)
[2021-08-12] MEDS ORDERED: POTASSIUM CHLORIDE 20 MEQ TABLET PO PRN ×2 (21:39)
[2021-08-12] MEDS ORDERED: ONDANSETRON 4 MG/2 ML VIAL IV PRN (21:39)
[2021-08-12] MEDS ORDERED: 0.9 % SODIUM CHLORIDE 1,000 ML IV SCH (21:39)
[2021-08-12] MEDS ORDERED: DEXTROSE 31 GM ORAL.SUSP PO PRN (21:39)
[2021-08-12] MEDS ORDERED: POTASSIUM CHLORIDE 40 MEQ in DEXTROSE 5% IN WATER 500 ML IV PRN (21:39)
[2021-08-12] MEDS ORDERED: IPRATROPIUM/ALBUTEROL 3 ML AMPUL.NEB NEB PRN (21:39)
[2021-08-12] MEDS ORDERED: DEXTROSE 50% 50 ML VIAL IV PRN (21:39)
[2021-08-12] MEDS ORDERED: METOPROLOL TARTRATE 5 MG/5 ML VIAL IV PRN (21:39)
[2021-08-12] MEDS ORDERED: SENNOSIDES 1 TABLET PO PRN (21:39)
[2021-08-12] MEDS: 0.9 % SODIUM CHLORIDE 10 ML SYRINGE IV SCH (21:52)
--- NOTE | 2021-08-12 21:57 | Discharge Summary ---
Discharge Provider Provider Patient information: Note initiated : 08/12/21 at 9:56 pm Service Date, if different from initiated Date: [] Patient: Jessica Mendoza 71 y/o F admitted on 08/12/21 for syncope, back pain. Chief Complaint: [] Date of admission: 08/12/21 21:37 Discharge date: 08/13/21 Primary care physician: Serafin Bender M.D., F.A.A.F.P. Consults: 08/12/21 Consult to Physician [CONS] Stat Comment: Consulting Provider: Tim Schmid Reason For Exam: Physician to Consult Discharge Meds Discharge Medications Home Medications blood-glucose meter #1 each 05/02/19 [Rx Confirmed 08/12/21 Last Taken Unknown] denosumab 60 mg/mL subcutaneous syringe 60 mg SUB-Q [id number] #1 ml 12/04/19 [Rx Confirmed 08/12/21 Last Taken Unknown] omeprazole 20 mg PO DAILY 07/04/20 [History Confirmed 08/12/21 Last Taken 08/12/21 07:00] acetaminophen 500 mg capsule 1,000 mg PO TID cap 10/01/20 [History Confirmed 08/12/21 Last Taken 08/12/21 15:00] metoprolol tartrate 25 mg tablet 25 mg PO BID #60 tab 11/07/20 [Rx Confirmed 08/12/21 Last Taken 08/12/21 09:00] vitamin B complex 1 tab PO QDAY 11/07/20 [History Confirmed 08/12/21 Last Taken 08/12/21 09:00] torsemide 10 mg tablet 10 mg PO QDAY #30 tab 11/27/20 [Rx Confirmed 08/12/21 Last Taken 08/12/21 09:00] insulin lispro 100 unit/mL subcutaneous cartridge 1 sliding scale dose SUBCUT USEASDIRECTD #15 ml 04/10/21 [Rx Confirmed 08/12/21 Last Taken 08/12/21 08:00 6 units] isosorbide mononitrate 30 mg tablet,extended release 24 hr 30 mg PO DAILY #90 tab 04/15/21 [Rx Confirmed 08/12/21 Last Taken 08/12/21 08:00] losartan 50 mg tablet 50 mg PO QDAY #90 tab 05/27/21 [Rx Confirmed 08/12/21 Last Taken 08/12/21 09:00] Levemir FlexTouch U-100 Insuln 42 unit SUBCUT HS 08/12/21 [History Confirmed 08/12/21 Last Taken 08/11/21 21:00] COURSE Hospital Course Hospital course: History of present illness: Ms. Mendoza is a 71 year old F Patient presents to the ED with syncope. The patient she was in her room sitting in her bed when she got up to go to the bathroom and had diarrhea then went in to walk over to her daughter's room and she got dizzy and passed out. Given ER was unremarkable. She does have a history of A. fib. She said her blood sugar was high this morning and did take some insulin but we do not know what her sugars were at the time of the incident. Laboratory unremarkable. [place] syncope risk score was a low to medium but daughter was adamant patient be admitted. Orthostatic vital signs in the ED were unremarkable. 08/13 No issues overnight. Telemetry unremarkable. Echo ordered but will not have results for couple days. A: *Syncope: likely vasovgal -[place] risk score low-medium, 3.1% *afib: on BB, refuses anticoagulation *DM: *CKD IIIb: *HTN: *GERD: *Obesity: Discharge diagnosis: Syncope likely vasovagal Secondary discharge diagnosis: A. fib diabetes chronic kidney disease hypertension GERD obesity Time Spent with Patient Time attestation: Total time spent providing and/or coordinating discharge services: EXAM Constitutional Vitals: Temp Pulse Resp BP Pulse Ox 97.2 F 78 16 148/49 98 08/12/21 14:48 08/12/21 20:46 08/12/21 20:46 08/12/21 20:46 08/12/21 20:46 Discharge Data Data Completed and Pending Labs on day of discharge: Labs from last 24 hours 08/12/21 08/12/21 08/12/21 18:40 17:22 16:25 WBC RBC Hgb Hct MCV MCH MCHC RDW Plt Count MPV Neut % (Auto) Lymph % (Auto) Kings % (Auto) Eos % (Auto) Baso % (Auto) Lymph # (Auto) Kings # (Auto) Eos # (Auto) Baso # (Auto) Absolute Neutrophils Sodium Potassium Chloride Carbon Dioxide Anion Gap BUN Creatinine GFR Calculation Glucose Calcium Total Bilirubin AST ALT Alkaline Phosphatase Troponin T < 0.01 NT-Pro-B Natriuret Pep Total Protein Albumin Globulin Albumin/Globulin Ratio Urine Color Straw Urine Appearance Clear Urine pH 5.0 Ur Specific Mc[place]or 1.008 Urine Protein Negative Urine Glucose (UA) Negative Urine Ketones Negative Urine Occult Blood Negative Urine Nitrate Negative Urine Bilirubin Negative Urine Urobilinogen Negative Ur Leukocyte Esterase 25 A Urine RBC 1 Urine WBC 7 H Ur Squamous Epith Cells < 1 Urine Bacteria Few A Urine Mucus Few A Ur Culture Indicated? Yes 08/12/21 08/12/21 08/12/21 15:14 15:14 14:56 WBC 6.8 RBC 4.53 Hgb 13.3 Hct 41.1 MCV 90.7 MCH 29.4 MCHC 32.4 RDW 12.3 Plt Count 234 MPV 10.1 Neut % (Auto) 45.7 Lymph % (Auto) 40.2 Kings % (Auto) 11.0 Eos % (Auto) 2.7 Baso % (Auto) 0.4 Lymph # (Auto) 2.73 Kings # (Auto) 0.75 Eos # (Auto) 0.18 Baso # (Auto) 0.03 Absolute Neutrophils 3.10 Sodium Potassium Chloride Carbon Dioxide Anion Gap BUN Creatinine GFR Calculation Glucose Calcium Total Bilirubin AST ALT Alkaline Phosphatase Troponin T < 0.01 NT-Pro-B Natriuret Pep 1166.0 H Total Protein Albumin Globulin Albumin/Globulin Ratio Urine Color Urine Appearance Urine pH Ur Specific Mc[place] Urine Protein Urine Glucose (UA) Urine Ketones Urine Occult Blood Urine Nitrate Urine Bilirubin Urine Urobilinogen Ur Leukocyte Esterase Urine RBC Urine WBC Ur Squamous Epith Cells Urine Bacteria Urine Mucus Ur Culture Indicated? 08/12/21 14:56 WBC RBC Hgb Hct MCV MCH MCHC RDW Plt Count MPV Neut % (Auto) Lymph % (Auto) Kings % (Auto) Eos % (Auto) Baso % (Auto) Lymph # (Auto) Kings # (Auto) Eos # (Auto) Baso # (Auto) Absolute Neutrophils Sodium 137 Potassium 4.5 Chloride 99 Carbon Dioxide 26 Anion Gap 12.0 BUN 39 H Creatinine 1.3 H GFR Calculation 41 Glucose 113 H Calcium 9.2 Total Bilirubin 0.3 AST 24 ALT 19 Alkaline Phosphatase 107 Troponin T NT-Pro-B Natriuret Pep Total Protein 7.5 Albumin 3.6 Globulin 3.9 H Albumin/Globulin Ratio 0.9 L Urine Color Urine Appearance Urine pH Ur Specific [place] Urine Protein Urine Glucose (UA) Urine Ketones Urine Occult Blood Urine Nitrate Urine Bilirubin Urine Urobilinogen Ur Leukocyte Esterase Urine RBC Urine WBC Ur Squamous Epith Cells Urine Bacteria Urine Mucus Ur Culture Indicated? Discharge Plan Patient/Caregiver Discharge Instructions Activity: increase activity as tolerated Diet: Consistent Carbohydrate Prescriptions: Continued (DME) blood-glucose meter kit See Dose Instructions .ROUTE .MEDSUPPLY Qty: 1 RF: 0 torsemide 10 mg tablet 10 mg PO QDAY Qty: 30 RF: 11 isosorbide mononitrate 30 mg tablet extended release 24 hr 30 mg PO DAILY Qty: 90 RF: 3 losartan 50 mg tablet 50 mg PO QDAY Qty: 90 RF: 3 vitamin B complex [B Complex-Vitamin B12] Tablet 1 tab PO QDAY RF: 0 metoprolol tartrate 25 mg tablet 25 mg PO BID Qty: 60 RF: 12 Humalog U-100 Insulin 100 unit/mL cartridge 1 sliding scale dose subcut USEASDIRECTD Qty: 15 RF: 7 denosumab 60 mg/mL syringe 60 mg SUB-Q [id number] Qty: 1 RF: 0 acetaminophen 500 mg capsule 1,000 mg PO TID RF: 0 omeprazole 20 mg capsule,delayed release(DR/EC) 20 mg PO DAILY RF: 0 No Action Levemir FlexTouch U-100 Insuln 100 unit/mL (3 mL) insulin pen 42 unit subcut HS RF: 0 Follow Up Plan Follow up with: Serafin Bender MD, FAAFP [Primary Care Provider] - Patient Disposition: Home, Self-Care Prognosis: Fair Overall status at discharge: patient is progressing back to baseline Discharge Orders: Discharge Order (Routine); Ordered 08/13/21 Ordered By: Tim Schmid
[2021-08-12] MEDS: ENOXAPARIN 40 MG/0.4 ML SYRINGE SQ SCH (22:08)
[2021-08-12] MEDS: INSULIN LISPRO 1 UNIT/0.01 ML UNIT SQ SCH (22:08)
--- NOTE | 2021-08-13 01:59 | XRay Report ---
CLINICAL INFORMATION: syncope COMPARISON: 12/01/2016 FINDINGS: Heart size, mediastinum and pulmonary vessels are normal. Tiny calcified granulomas seen in both lungs as before with minor bibasilar atelectasis. No infiltrates. Pleural spaces are normal. IMPRESSION: Minor bibasilar atelectasis. Interpreted and Authenticated by: Arie Tavera 08/13/21
--- NOTE | 2021-08-13 02:41 | Cat Scan Report ---
CLINICAL INFORMATION: Syncope and loss of consciousness. Hit head COMPARISON: None. TECHNIQUE: 2.5 mm helical slices were obtained in the skull base to vertex. Following reconstruction, axial reformatted images were reviewed at bone and parenchymal windows. The exam was performed using radiation dose optimization techniques including, but not limited to, automated exposure control, adjustment of the mA and/or kV according to patient size and use of iterative reconstruction technique. FINDINGS: The ventricles, sulci, fissures, and cisterns are symmetrically enlarged compatible with mild age-related atrophy. No extra-axial fluid collections are identified. Mild patchy chronic ischemic changes, in the deep cerebral white matter, are expected for age. Scattered remote lacunar infarcts in basal ganglia and right thalamus appreciated. There is no hemorrhage, mass effect, or edema. Bone windows show no osseous abnormality. IMPRESSION: Mild atrophy and chronic ischemic changes in the deep cerebral white matter-expected for age. A few small remote lacunar infarcts in basal ganglia and right thalamus appreciated. No hemorrhage or other acute finding Severe bilateral anterior ethmoid sinusitis Interpreted and Authenticated by: Arie Tavera 08/13/21
[2021-08-13] MEDS: 0.9 % SODIUM CHLORIDE 10 ML SYRINGE IV SCH ×2 (07:05→14:33)
[2021-08-13] MEDS ORDERED: ACETAMINOPHEN 500 MG TABLET PO PRN (07:18)
[2021-08-13] MEDS ORDERED: OMEPRAZOLE 20 MG CAPSULE PO SCH (07:30)
[2021-08-13] MEDS: ENOXAPARIN 40 MG/0.4 ML SYRINGE SQ SCH (08:12)
[2021-08-13] MEDS: INSULIN LISPRO 1 UNIT/0.01 ML UNIT SQ SCH ×2 (08:12→11:52)
[2021-08-13] MEDS ORDERED: TORSEMIDE 10 MG TABLET PO SCH (09:00)
[2021-08-13] MEDS ORDERED: METOPROLOL TARTRATE 25 MG TABLET PO SCH (09:00)
[2021-08-13] MEDS ORDERED: LOSARTAN 50 MG TABLET PO SCH (09:00)
[2021-08-13] MEDS ORDERED: ISOSORBIDE MONONITRATE 30 MG TAB.XL.24H PO SCH (09:00)
[2021-08-13] MEDS ORDERED: cefTRIAXone 1 GM VIAL IV ONE (14:19)
--- NOTE | 2021-08-13 18:07 | EKG ---
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
--- NOTE | 2021-08-13 18:07 | EKG ---
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
[2021-08-13] MEDS ORDERED: INSULIN GLARGINE, HUMAN 1 UNIT/0.01 ML SQ SCH (21:00)
== END 2021-08-13 15:18 | disposition home health service (06) ==
LOC: MEDSUR 14:37 → ED 14:37 → MEDSUR 21:37
PROVIDERS: ADMIT Internal Medicine; ATTEND Internal Medicine

== ENCOUNTER 2024-01-10 20:56 | Inpatient (IN) ==
[2024-01-10] MEDS: ACETAMINOPHEN 325 MG TABLET PO ONE (21:29)
[2024-01-10] MEDS: ONDANSETRON 4 MG/2 ML VIAL IV ONE (21:31)
[2024-01-10 21:59] LABS: Basophils # (Auto) 0.03 K/mcL (0.00-0.30); Basophils % (Auto) 0.2 % (0.0-2.0); Eosinophils # (Auto) 0.02 K/mcL (0.00-0.70); Eosinophils % (Auto) 0.2 % (0.0-7.0); Hematocrit 40.1 % (34.1-44.9); Hemoglobin 12.4 g/dL (11.2-15.7); Lymphocytes # (Auto) 1.52 K/mcL (1.50-4.80); Lymphocytes % (Auto) 12.5 % (15.5-49.0); Mean Cell Volume 93.3 fL (80.0-100.0); Mean Corpuscular HGB Conc 30.9 g/dL (31.0-36.0); Monocytes # (Auto) 1.64 K/mcL (0.10-0.90); Monocytes % (Auto) 13.5 % (1.0-12.0); Neutrophils % (Auto) 73.2 % (38.0-78.0); Platelet Count 164 K/mcL (140-440); Red Cell Distribution Width 12.4 % (11.5-14.5); WBC 12.2 K/mcL (4.5-11.0)
[2024-01-10 22:16] LABS: ALT/SGPT 7 U/L (<40); AST/SGOT 38 U/L (<32); Albumin 3.4 gm/dL (3.2-5.2); Alkaline Phosphatase 126 U/L (39-117); Bilirubin,Total 0.7 mg/dL (0.1-1.0); Blood Urea Nitrogen 38 mg/dL (8-23); Calcium 8.7 mg/dL (8.6-10.4); Carbon Dioxide 23 mmol/L (22-30); Chloride 102 mmol/L (96-108); Globulin 3.4 gm/dL (2.2-3.7); Glomerular Filtration Rate 34; Glucose 331 mg/dL (70-105)
[2024-01-10 22:19] LABS: Appearance,Urine Cloudy (Clear); Bacteria,Urine Few /hpf (0); Bilirubin,Urine Negative (Negative); Color,Urine Yellow; Culture Indicated,Urine Yes; Glucose,Urine (UA) 100 mg/dL (Negative); Ketones,Urine Negative (Negative); Leukocyte Esterase,Urine Large /uL (Negative); Nitrate,Urine Negative (Negative); PH,Urine 5.5 (5.0-9.0); Protein,Urine 100 mg/dL (Negative); Specific Gravity,Urine 1.015 (1.000-1.035); Urine Blood Large ery/mcL (Negative); Urine RBC 0 /hpf (0-3); Urine Squamous Epithelial Cell 2 /hpf (0-4); Urine WBC > 182 /hpf (0-4); Urobilinogen,Urine Normal
[2024-01-10] MEDS: cefTRIAXone 1 GM VIAL IV ONE (23:36)
[2024-01-11] MEDS: INSULIN REGULAR, HUMAN 1 UNIT/0.01 ML UNIT SQ ONE (01:12)
[2024-01-11] MEDS: METOPROLOL TARTRATE 25 MG TABLET PO ONE (05:49)
[2024-01-11] MEDS: ONDANSETRON 4 MG/2 ML VIAL IV ONE (07:12)
[2024-01-11] MEDS: CEFEPIME 1 GM VIAL IV SCH (10:10)
[2024-01-11] MEDS ORDERED: MAGNESIUM SULFATE 2 GM/50 ML BAG IV PRN (11:07)
[2024-01-11] MEDS ORDERED: POTASSIUM CHLORIDE 20 MEQ TABLET PO PRN ×2 (11:07)
[2024-01-11] MEDS ORDERED: METOPROLOL TARTRATE 5 MG/5 ML VIAL IV PRN (11:07)
[2024-01-11] MEDS ORDERED: IPRATROPIUM/ALBUTEROL 3 ML AMPUL.NEB NEB PRN (11:07)
[2024-01-11] MEDS ORDERED: POTASSIUM CHLORIDE 40 MEQ in DEXTROSE 5% IN WATER 500 ML IV PRN (11:07)
[2024-01-11] MEDS ORDERED: SENNOSIDES 1 TABLET PO PRN (11:07)
[2024-01-11] MEDS ORDERED: LABETALOL HCL 20 MG/4 ML VIAL IV PRN (11:07)
[2024-01-11] MEDS ORDERED: DEXTROSE 50% 50 ML VIAL IV PRN (11:07)
[2024-01-11] MEDS: 0.9 % SODIUM CHLORIDE 1,000 ML IV SCH (11:44)
[2024-01-11] MEDS: METOPROLOL TARTRATE 25 MG TABLET PO SCH (11:44)
[2024-01-11] MEDS: cefTRIAXone 1 GM VIAL IV SCH (12:20)
[2024-01-11] MEDS: INSULIN LISPRO 1 UNIT/0.01 ML UNIT SQ SCH (12:26)
[2024-01-11] MEDS ORDERED: LABETALOL 5 MG/ML ML IV PRN (12:30)
[2024-01-11] MEDS: 0.9 % SODIUM CHLORIDE 10 ML SYRINGE IV SCH (15:27)
[2024-01-11] MEDS: HYDROcodone/APAP 5/325MG TABLET PO PRN (16:16)
[2024-01-11] MEDS: RIVAROXABAN 20 MG TABLET PO SCH (17:15)
[2024-01-11] MEDS: cefTRIAXone 2 GM in DEXTROSE 5% IN WATER 50 ML IV SCH (20:16)
[2024-01-11] MEDS: DOCUSATE SODIUM 100 MG CAPSULE PO SCH (20:16)
[2024-01-12 06:22] LABS: Basophils # (Auto) 0.03 K/mcL (0.00-0.30); Basophils % (Auto) 0.3 % (0.0-2.0); Eosinophils # (Auto) 0.02 K/mcL (0.00-0.70); Eosinophils % (Auto) 0.2 % (0.0-7.0); Hematocrit 36.7 % (34.1-44.9); Lymphocytes % (Auto) 22.2 % (15.5-49.0); Mean Cell Volume 94.8 fL (80.0-100.0); Mean Platelet Volume 10.4 fL (8.8-12.5); Monocytes # (Auto) 1.66 K/mcL (0.10-0.90); Monocytes % (Auto) 14.2 % (1.0-12.0); Neutrophils % (Auto) 62.6 % (38.0-78.0); Platelet Count 145 K/mcL (140-440); RBC 3.87 M/mcL (3.59-5.38); Red Cell Distribution Width 12.7 % (11.5-14.5); WBC 11.7 K/mcL (4.5-11.0)
[2024-01-12 06:47] LABS: ALT/SGPT < 5 U/L (<40); AST/SGOT 31 U/L (<32); Albumin 2.9 gm/dL (3.2-5.2); Albumin/Globulin Ratio 0.9 (1.0-2.3); Alkaline Phosphatase 64 U/L (39-117); Bilirubin,Direct < 0.2 mg/dL (0-0.3); Bilirubin,Total 0.3 mg/dL (0.1-1.0); Blood Urea Nitrogen 41 mg/dL (8-23); Carbon Dioxide 21 mmol/L (22-30); Chloride 105 mmol/L (96-108); Globulin 3.1 gm/dL (2.2-3.7); Glomerular Filtration Rate 25; Glucose 151 mg/dL (70-105); Lactate Dehydrogenase 242 U/L (135-225); Phosphorous 2.4 mg/dL (2.5-4.5); Triglycerides 96 mg/dL (<150); Uric Acid 9.3 mg/dL (2.5-8.0)
[2024-01-12] MEDS: OMEPRAZOLE 20 MG CAPSULE PO SCH (07:56)
[2024-01-12] MEDS: POLYETHYLENE GLYCOL 3350 17 GM PACKET PO PRN (08:57)
[2024-01-12] MEDS: ACETAMINOPHEN 325 MG TABLET PO PRN (08:59)
[2024-01-12] MEDS ORDERED: METOPROLOL TARTRATE 25 MG TABLET PO SCH (09:00)
[2024-01-12] MEDS: LOSARTAN 50 MG TABLET PO SCH (09:01)
[2024-01-12] MEDS: ATORVASTATIN 10 MG TABLET PO SCH (09:02)
[2024-01-12] MEDS: SUCRALFATE 1 GM TABLET PO ONE (11:15)
[2024-01-12] MEDS: cefTRIAXone 2 GM in DEXTROSE 5% IN WATER 50 ML IV SCH (11:17)
[2024-01-12] MEDS: INSULIN GLARGINE, HUMAN 1 UNIT/0.01 ML SQ SCH (11:18)
[2024-01-12] MEDS: 0.9 % SODIUM CHLORIDE 1,000 ML IV SCH (11:26)
[2024-01-12] MEDS: ALBUMIN HUMAN 12.5 GM/50 ML VIAL IV ONE (11:53)
[2024-01-12] MEDS: FUROSEMIDE 40 MG/4 ML VIAL IV ONE (11:53)
[2024-01-12] MEDS: ONDANSETRON 4 MG/2 ML VIAL IV PRN (12:16)
[2024-01-12] MEDS: RIVAROXABAN 15 MG TABLET PO SCH (17:00)
[2024-01-13] MEDS ORDERED: INSULIN DETEMIR U SUB-Q SCH (09:00)
[2024-01-13] MEDS ORDERED: [UNRECOGNIZED DRUG - OTHER] SUB-Q SCH (09:00)
[2024-01-13 09:33] LABS: Basophils # (Auto) 0.02 K/mcL (0.00-0.30); Basophils % (Auto) 0.2 % (0.0-2.0); Eosinophils # (Auto) 0.24 K/mcL (0.00-0.70); Eosinophils % (Auto) 2.7 % (0.0-7.0); Hematocrit 38.6 % (34.1-44.9); Hemoglobin 11.8 g/dL (11.2-15.7); Lymphocytes # (Auto) 2.21 K/mcL (1.50-4.80); Lymphocytes % (Auto) 25.1 % (15.5-49.0); Mean Cell Volume 93.9 fL (80.0-100.0); Mean Corpuscular HGB Conc 30.6 g/dL (31.0-36.0); Mean Platelet Volume 10.2 fL (8.8-12.5); Monocytes # (Auto) 1.17 K/mcL (0.10-0.90); Monocytes % (Auto) 13.3 % (1.0-12.0); Platelet Count 143 K/mcL (140-440); RBC 4.11 M/mcL (3.59-5.38); Red Cell Distribution Width 12.5 % (11.5-14.5); WBC 8.8 K/mcL (4.5-11.0)
[2024-01-13 10:04] LABS: ALT/SGPT 8 U/L (<40); AST/SGOT 32 U/L (<32); Albumin 2.9 gm/dL (3.2-5.2); Albumin/Globulin Ratio 0.8 (1.0-2.3); Alkaline Phosphatase 75 U/L (39-117); Bilirubin,Direct < 0.2 mg/dL (0-0.3); Bilirubin,Total 0.3 mg/dL (0.1-1.0); Blood Urea Nitrogen 49 mg/dL (8-23); Calcium 8.4 mg/dL (8.6-10.4); Carbon Dioxide 22 mmol/L (22-30); Chloride 102 mmol/L (96-108); Globulin 3.5 gm/dL (2.2-3.7); Glomerular Filtration Rate 23; Glucose 149 mg/dL (70-105); Lactate Dehydrogenase 239 U/L (135-225); Phosphorous 3.3 mg/dL (2.5-4.5); Triglycerides 104 mg/dL (<150); Uric Acid 9.5 mg/dL (2.5-8.0)
[2024-01-13] MEDS: 0.9 % SODIUM CHLORIDE 750 ML IV ONE (17:04)
[2024-01-14 07:24] LABS: ALT/SGPT 33 U/L (<40); AST/SGOT 60 U/L (<32); Albumin 2.7 gm/dL (3.2-5.2); Albumin/Globulin Ratio 0.8 (1.0-2.3); Alkaline Phosphatase 85 U/L (39-117); Bilirubin,Direct < 0.2 mg/dL (0-0.3); Bilirubin,Total 0.2 mg/dL (0.1-1.0); Blood Urea Nitrogen 50 mg/dL (8-23); Calcium 8.2 mg/dL (8.6-10.4); Carbon Dioxide 19 mmol/L (22-30); Chloride 104 mmol/L (96-108); Globulin 3.4 gm/dL (2.2-3.7); Glomerular Filtration Rate 24; Glucose 40 mg/dL (70-105); Lactate Dehydrogenase 212 U/L (135-225); Phosphorous 3.6 mg/dL (2.5-4.5); Triglycerides 80 mg/dL (<150); Uric Acid 9.5 mg/dL (2.5-8.0)
[2024-01-14] MEDS: DEXTROSE 31 GM ORAL.SUSP PO PRN (07:31)
[2024-01-14] MEDS: INSULIN GLARGINE, HUMAN 1 UNIT/0.01 ML SQ SCH ×2 (08:51→20:21)
[2024-01-15 07:07] LABS: ALT/SGPT 21 U/L (<40); AST/SGOT 34 U/L (<32); Albumin 2.7 gm/dL (3.2-5.2); Albumin/Globulin Ratio 0.9 (1.0-2.3); Alkaline Phosphatase 81 U/L (39-117); Bilirubin,Direct < 0.2 mg/dL (0-0.3); Bilirubin,Total 0.3 mg/dL (0.1-1.0); Blood Urea Nitrogen 37 mg/dL (8-23); Calcium 8.5 mg/dL (8.6-10.4); Carbon Dioxide 24 mmol/L (22-30); Chloride 107 mmol/L (96-108); Glomerular Filtration Rate 37; Glucose 70 mg/dL (70-105); Lactate Dehydrogenase 185 U/L (135-225); Phosphorous 2.9 mg/dL (2.5-4.5); Triglycerides 73 mg/dL (<150); Uric Acid 9.3 mg/dL (2.5-8.0)
[2024-01-15 11:55] VITALS: TEMP 98.2; O2SAT 96
== END 2024-01-15 12:15 | DRG 871 ==
LOC: ED 20:56 → MEDSUR 01-11 10:48
PROVIDERS: ADMIT Internal Medicine; ATTEND Internal Medicine

== ENCOUNTER 2024-12-12 20:27 | Inpatient (IN) ==
[2024-12-12 22:27] LABS: Basophils # (Auto) 0.03 K/mcL (0.00-0.30); Basophils % (Auto) 0.3 % (0.0-2.0); Eosinophils # (Auto) 0.14 K/mcL (0.00-0.70); Eosinophils % (Auto) 1.2 % (0.0-7.0); Hematocrit 39.3 % (34.1-44.9); Lymphocytes # (Auto) 2.72 K/mcL (1.50-4.80); Mean Cell Volume 93.8 fL (80.0-100.0); Mean Corpuscular HGB Conc 30.5 g/dL (31.0-36.0); Mean Platelet Volume 10.4 fL (8.8-12.5); Monocytes # (Auto) 1.33 K/mcL (0.10-0.90); Monocytes % (Auto) 11.2 % (1.0-12.0); Platelet Count 196 K/mcL (140-440); RBC 4.19 M/mcL (3.59-5.38); Red Cell Distribution Width 12.4 % (11.5-14.5); WBC 11.8 K/mcL (4.5-11.0)
[2024-12-12 22:57] LABS: ALT/SGPT 23 U/L (<40); AST/SGOT 20 U/L (<32); Albumin 3.5 gm/dL (3.2-5.2); Alkaline Phosphatase 60 U/L (39-117); Bilirubin,Total 0.5 mg/dL (0.1-1.0); Blood Urea Nitrogen 60 mg/dL (8-23); Calcium 9.3 mg/dL (8.6-10.4); Carbon Dioxide 25 mmol/L (22-30); Chloride 99 mmol/L (96-108); Globulin 3.4 gm/dL (2.2-3.7); Glomerular Filtration Rate 22; Glucose 362 mg/dL (70-105); Sodium 134 mmol/L (133-145)
[2024-12-13] MEDS: HYDROmorphone 0.5 MG/0.5 ML SYRINGE IV ONE (01:13)
[2024-12-13] MEDS: 0.9 % SODIUM CHLORIDE 100 ML IV ONE (01:14)
[2024-12-13] MEDS: CEFEPIME 2 GM VIAL IV ONE (01:26)
[2024-12-13] MEDS ORDERED: DEXTROSE 50% 50 ML VIAL IV PRN (01:49)
[2024-12-13] MEDS ORDERED: DEXTROSE 31 GM ORAL.SUSP PO PRN (01:49)
[2024-12-13] MEDS: VANCOMYCIN 1,000 MG in 0.9 % SODIUM CHLORIDE 250 ML IV ONE (01:53)
[2024-12-13] MEDS: AMPICILLIN SODIUM/SULBACTAM NA 3 GM in 0.9 % SODIUM CHLORIDE 100 ML IV ONE (01:53)
[2024-12-13] MEDS: VANCOMYCIN PER PHARMACY IV ONE (01:53)
[2024-12-13] MEDS: CEFEPIME 2 GM VIAL IV SCH (01:54)
[2024-12-13] MEDS ORDERED: ONDANSETRON 4 MG/2 ML VIAL IV PRN ×2 (02:06→06:50)
[2024-12-13] MEDS ORDERED: HYDROmorphone 0.5 MG/0.5 ML SYRINGE IV PRN (02:13)
[2024-12-13] MEDS ORDERED: IBUPROFEN 600 MG TABLET PO PRN (02:13)
[2024-12-13] MEDS: LACTATED RINGERS 1,000 ML IV SCH (03:05)
[2024-12-13] MEDS: 0.9 % SODIUM CHLORIDE 1,000 ML IV SCH (03:28)
[2024-12-13] MEDS: INSULIN REGULAR, HUMAN 1 UNIT/0.01 ML UNIT IV ONE (03:33)
[2024-12-13] MEDS: HYDROcodone/APAP 5/325MG TABLET PO PRN (04:07)
[2024-12-13 06:14] LABS: Basophils # (Auto) 0.02 K/mcL (0.00-0.30); Basophils % (Auto) 0.2 % (0.0-2.0); Eosinophils # (Auto) 0.14 K/mcL (0.00-0.70); Eosinophils % (Auto) 1.3 % (0.0-7.0); Hematocrit 37.3 % (34.1-44.9); Hemoglobin 11.2 g/dL (11.2-15.7); Lymphocytes # (Auto) 2.87 K/mcL (1.50-4.80); Lymphocytes % (Auto) 27.1 % (15.5-49.0); Mean Cell Volume 94.9 fL (80.0-100.0); Mean Platelet Volume 10.3 fL (8.8-12.5); Monocytes # (Auto) 1.48 K/mcL (0.10-0.90); Neutrophils % (Auto) 57.2 % (38.0-78.0); Platelet Count 159 K/mcL (140-440); RBC 3.93 M/mcL (3.59-5.38); Red Cell Distribution Width 12.3 % (11.5-14.5); WBC 10.6 K/mcL (4.5-11.0)
[2024-12-13 06:40] LABS: ALT/SGPT 17 U/L (<40); AST/SGOT 18 U/L (<32); Albumin 2.9 gm/dL (3.2-5.2); Albumin/Globulin Ratio 0.9 (1.0-2.3); Alkaline Phosphatase 52 U/L (39-117); Bilirubin,Total 0.4 mg/dL (0.1-1.0); Blood Urea Nitrogen 55 mg/dL (8-23); C-Reactive Protein 1.02 mg/dL (0.03-0.80); Carbon Dioxide 21 mmol/L (22-30); Chloride 105 mmol/L (96-108); Globulin 3.4 gm/dL (2.2-3.7); Glomerular Filtration Rate 29; Glucose 139 mg/dL (70-105); Potassium 4.5 mmol/L (3.3-5.1); Sodium 138 mmol/L (133-145)
[2024-12-13] MEDS: PANTOPRAZOLE 40 MG TABLET PO SCH (07:43)
[2024-12-13] MEDS: INSULIN LISPRO 1 UNIT/0.01 ML UNIT SQ SCH (07:44)
[2024-12-13] MEDS ORDERED: VANCOMYCIN PER PHARMACY IV SCH (07:45)
[2024-12-13] MEDS: DOCUSATE SODIUM 100 MG CAPSULE PO SCH (09:20)
[2024-12-13] MEDS: CEFEPIME 1 GM VIAL IV SCH (09:21)
[2024-12-13] MEDS: VANCOMYCIN 500 MG in 0.9 % SODIUM CHLORIDE 100 ML IV ONE (12:00)
[2024-12-13] MEDS: 0.9 % SODIUM CHLORIDE 10 ML SYRINGE IV SCH (13:23)
[2024-12-13] MEDS: INSULIN GLARGINE, HUMAN 1 UNIT/0.01 ML SQ SCH (15:40)
[2024-12-13] MEDS: SENNOSIDES 1 TABLET PO SCH (19:17)
[2024-12-13] MEDS: HEPARIN 5,000 UNIT/ML VIAL SQ SCH (21:02)
[2024-12-13] MEDS: ATORVASTATIN 40 MG TABLET PO SCH (21:03)
[2024-12-14 06:11] LABS: Basophils # (Auto) 0.04 K/mcL (0.00-0.30); Basophils % (Auto) 0.4 % (0.0-2.0); Eosinophils % (Auto) 1.9 % (0.0-7.0); Hematocrit 36.2 % (34.1-44.9); Hemoglobin 10.7 g/dL (11.2-15.7); Lymphocytes # (Auto) 2.86 K/mcL (1.50-4.80); Lymphocytes % (Auto) 27.5 % (15.5-49.0); Mean Cell Volume 96.8 fL (80.0-100.0); Mean Corpuscular HGB Conc 29.6 g/dL (31.0-36.0); Mean Platelet Volume 10.3 fL (8.8-12.5); Monocytes # (Auto) 1.34 K/mcL (0.10-0.90); Monocytes % (Auto) 12.9 % (1.0-12.0); Neutrophils % (Auto) 57.1 % (38.0-78.0); Platelet Count 152 K/mcL (140-440); RBC 3.74 M/mcL (3.59-5.38); Red Cell Distribution Width 12.4 % (11.5-14.5); WBC 10.4 K/mcL (4.5-11.0)
[2024-12-14 06:45] LABS: ALT/SGPT 12 U/L (<40); AST/SGOT 23 U/L (<32); Albumin/Globulin Ratio 0.9 (1.0-2.3); Alkaline Phosphatase 61 U/L (39-117); Bilirubin,Direct 0.3 mg/dL (<0.3); Bilirubin,Total 0.5 mg/dL (0.1-1.0); Blood Urea Nitrogen 37 mg/dL (8-23); Calcium 8.4 mg/dL (8.6-10.4); Carbon Dioxide 22 mmol/L (22-30); Chloride 105 mmol/L (96-108); Globulin 3.3 gm/dL (2.2-3.7); Glomerular Filtration Rate 40; Glucose 121 mg/dL (70-105); Lactate Dehydrogenase 393 U/L (135-225); Phosphorous 3.1 mg/dL (2.5-4.5); Potassium 4.5 mmol/L (3.3-5.1); Sodium 138 mmol/L (133-145); Triglycerides 75 mg/dL (<150)
[2024-12-14] MEDS: PANTOPRAZOLE 40 MG TABLET PO SCH (08:05)
[2024-12-14] MEDS: METOPROLOL SUCCINATE 25 MG TAB.XL.24H PO SCH (10:13)
[2024-12-14] MEDS: VANCOMYCIN 1,500 MG in 0.9 % SODIUM CHLORIDE 500 ML IV ONE (10:20)
[2024-12-14] MEDS: cefTRIAXone 2 GM in DEXTROSE 5% IN WATER 50 ML IV ONE (12:55)
[2024-12-14] MEDS: RIVAROXABAN 20 MG TABLET PO SCH (17:51)
[2024-12-15 06:14] LABS: Basophils # (Auto) 0.04 K/mcL (0.00-0.30); Basophils % (Auto) 0.4 % (0.0-2.0); Eosinophils # (Auto) 0.31 K/mcL (0.00-0.70); Eosinophils % (Auto) 2.8 % (0.0-7.0); Hematocrit 37.2 % (34.1-44.9); Hemoglobin 11.4 g/dL (11.2-15.7); Lymphocytes # (Auto) 3.53 K/mcL (1.50-4.80); Lymphocytes % (Auto) 31.5 % (15.5-49.0); Mean Cell Volume 93.7 fL (80.0-100.0); Mean Corpuscular HGB Conc 30.6 g/dL (31.0-36.0); Mean Platelet Volume 10.4 fL (8.8-12.5); Monocytes # (Auto) 1.45 K/mcL (0.10-0.90); Monocytes % (Auto) 12.9 % (1.0-12.0); Platelet Count 173 K/mcL (140-440); RBC 3.97 M/mcL (3.59-5.38); Red Cell Distribution Width 12.3 % (11.5-14.5); WBC 11.2 K/mcL (4.5-11.0)
[2024-12-15 06:33] LABS: ALT/SGPT 15 U/L (<40); AST/SGOT 19 U/L (<32); Alkaline Phosphatase 54 U/L (39-117); Bilirubin,Direct 0.3 mg/dL (<0.3); Bilirubin,Total 0.5 mg/dL (0.1-1.0); Blood Urea Nitrogen 29 mg/dL (8-23); Calcium 8.2 mg/dL (8.6-10.4); Carbon Dioxide 24 mmol/L (22-30); Chloride 100 mmol/L (96-108); Globulin 3.1 gm/dL (2.2-3.7); Glomerular Filtration Rate 40; Glucose 86 mg/dL (70-105); Lactate Dehydrogenase 169 U/L (135-225); Phosphorous 2.7 mg/dL (2.5-4.5); Potassium 4.2 mmol/L (3.3-5.1); Sodium 134 mmol/L (133-145); Triglycerides 62 mg/dL (<150); Uric Acid 7.2 mg/dL (2.5-8.0)
[2024-12-15 07:13] LABS: Vancomycin,Random 15.1 ug/mL
[2024-12-15] MEDS ORDERED: cefTRIAXone 1 GM VIAL IV SCH (09:00)
[2024-12-15] MEDS: cefTRIAXone 2 GM in DEXTROSE 5% IN WATER 50 ML IV SCH (09:27)
[2024-12-15] MEDS: INSULIN GLARGINE, HUMAN 1 UNIT/0.01 ML SQ SCH (10:26)
[2024-12-15] MEDS: AMPICILLIN SODIUM/SULBACTAM NA 3 GM in 0.9 % SODIUM CHLORIDE 100 ML IV SCH (12:20)
[2024-12-15] MEDS: DULAGLUTIDE 4.5 MG/0.5 ML SUB-Q SCH (20:54)
[2024-12-16 07:06] LABS: ALT/SGPT 18 U/L (<40); AST/SGOT 22 U/L (<32); Albumin 2.8 gm/dL (3.2-5.2); Albumin/Globulin Ratio 0.9 (1.0-2.3); Alkaline Phosphatase 50 U/L (39-117); Bilirubin,Direct 0.2 mg/dL (<0.3); Bilirubin,Total 0.4 mg/dL (0.1-1.0); Blood Urea Nitrogen 31 mg/dL (8-23); Calcium 7.8 mg/dL (8.6-10.4); Carbon Dioxide 23 mmol/L (22-30); Chloride 99 mmol/L (96-108); Globulin 3.1 gm/dL (2.2-3.7); Glomerular Filtration Rate 37; Glucose 158 mg/dL (70-105); Lactate Dehydrogenase 158 U/L (135-225); Phosphorous 2.3 mg/dL (2.5-4.5); Potassium 4.1 mmol/L (3.3-5.1); Sodium 133 mmol/L (133-145); Triglycerides 65 mg/dL (<150); Uric Acid 7.2 mg/dL (2.5-8.0)
[2024-12-16 07:38] LABS: Basophils # (Auto) 0.03 K/mcL (0.00-0.30); Basophils % (Auto) 0.4 % (0.0-2.0); Eosinophils # (Auto) 0.14 K/mcL (0.00-0.70); Eosinophils % (Auto) 1.8 % (0.0-7.0); Hematocrit 34.4 % (34.1-44.9); Hemoglobin 10.6 g/dL (11.2-15.7); Lymphocytes # (Auto) 1.96 K/mcL (1.50-4.80); Lymphocytes % (Auto) 25.9 % (15.5-49.0); Mean Corpuscular HGB Conc 30.8 g/dL (31.0-36.0); Mean Platelet Volume 10.5 fL (8.8-12.5); Monocytes # (Auto) 1.24 K/mcL (0.10-0.90); Monocytes % (Auto) 16.4 % (1.0-12.0); Neutrophils % (Auto) 55.2 % (38.0-78.0); Platelet Count 149 K/mcL (140-440); Red Cell Distribution Width 12.2 % (11.5-14.5); WBC 7.6 K/mcL (4.5-11.0)
[2024-12-16] MEDS: CALCIUM GLUCONATE 4.65 MEQ in DEXTROSE 5% IN WATER 50 ML IV SCH (11:11)
[2024-12-16] MEDS: SODIUM PHOSPHATE 30 MMOL in DEXTROSE 5% IN WATER 500 ML IV SCH (12:15)
[2024-12-16] MEDS: ACETAMINOPHEN 325 MG TABLET PO PRN (16:40)
[2024-12-17 06:29] LABS: Basophils # (Auto) 0.04 K/mcL (0.00-0.30); Basophils % (Auto) 0.7 % (0.0-2.0); Eosinophils # (Auto) 0.18 K/mcL (0.00-0.70); Eosinophils % (Auto) 3.2 % (0.0-7.0); Hematocrit 34.4 % (34.1-44.9); Hemoglobin 10.6 g/dL (11.2-15.7); Lymphocytes # (Auto) 1.78 K/mcL (1.50-4.80); Lymphocytes % (Auto) 31.4 % (15.5-49.0); Mean Cell Volume 91.7 fL (80.0-100.0); Mean Corpuscular HGB Conc 30.8 g/dL (31.0-36.0); Mean Platelet Volume 10.1 fL (8.8-12.5); Monocytes # (Auto) 1.35 K/mcL (0.10-0.90); Monocytes % (Auto) 23.8 % (1.0-12.0); Neutrophils % (Auto) 40.5 % (38.0-78.0); Platelet Count 147 K/mcL (140-440); RBC 3.75 M/mcL (3.59-5.38); Red Cell Distribution Width 12.3 % (11.5-14.5); WBC 5.7 K/mcL (4.5-11.0)
[2024-12-17 06:38] LABS: ALT/SGPT 36 U/L (<40); AST/SGOT 56 U/L (<32); Albumin 2.6 gm/dL (3.2-5.2); Albumin/Globulin Ratio 0.8 (1.0-2.3); Alkaline Phosphatase 53 U/L (39-117); Bilirubin,Direct 0.2 mg/dL (<0.3); Bilirubin,Total 0.4 mg/dL (0.1-1.0); Blood Urea Nitrogen 25 mg/dL (8-23); Calcium 7.8 mg/dL (8.6-10.4); Carbon Dioxide 24 mmol/L (22-30); Chloride 103 mmol/L (96-108); Globulin 3.1 gm/dL (2.2-3.7); Glomerular Filtration Rate 44; Glucose 91 mg/dL (70-105); Lactate Dehydrogenase 185 U/L (135-225); Phosphorous 3.7 mg/dL (2.5-4.5); Potassium 4.1 mmol/L (3.3-5.1); Sodium 138 mmol/L (133-145); Triglycerides 56 mg/dL (<150); Uric Acid 7.5 mg/dL (2.5-8.0)
[2024-12-17] MEDS: LEVOFLOXACIN 750 MG/150 ML BAG IV SCH (08:46)
[2024-12-17] MEDS ORDERED: guaiFENesin/CODEINE 10 ML UDC PO PRN (11:14)
[2024-12-17] MEDS: oxyCODONE IR 5 MG TABLET PO PRN (11:47)
[2024-12-17] MEDS: ACETAMINOPHEN 325 MG TABLET PO PRN (23:29)
[2024-12-18 06:47] LABS: ALT/SGPT 61 U/L (<40); AST/SGOT 91 U/L (<32); Albumin 2.6 gm/dL (3.2-5.2); Albumin/Globulin Ratio 0.9 (1.0-2.3); Alkaline Phosphatase 52 U/L (39-117); Bilirubin,Direct < 0.2 mg/dL (0-0.3); Bilirubin,Total 0.4 mg/dL (0.1-1.0); Blood Urea Nitrogen 26 mg/dL (8-23); Calcium 7.6 mg/dL (8.6-10.4); Carbon Dioxide 25 mmol/L (22-30); Chloride 102 mmol/L (96-108); Glomerular Filtration Rate 34; Glucose 89 mg/dL (70-105); Lactate Dehydrogenase 187 U/L (135-225); Phosphorous 2.9 mg/dL (2.5-4.5); Potassium 3.7 mmol/L (3.3-5.1); Sodium 137 mmol/L (133-145); Triglycerides 66 mg/dL (<150); Uric Acid 7.3 mg/dL (2.5-8.0)
[2024-12-18 07:03] LABS: Basophils # (Auto) 0.03 K/mcL (0.00-0.30); Basophils % (Auto) 0.5 % (0.0-2.0); Eosinophils # (Auto) 0.17 K/mcL (0.00-0.70); Eosinophils % (Auto) 2.9 % (0.0-7.0); Hematocrit 32.9 % (34.1-44.9); Hemoglobin 10.1 g/dL (11.2-15.7); Lymphocytes # (Auto) 2.47 K/mcL (1.50-4.80); Lymphocytes % (Auto) 42.4 % (15.5-49.0); Mean Cell Volume 93.5 fL (80.0-100.0); Mean Corpuscular HGB Conc 30.7 g/dL (31.0-36.0); Mean Platelet Volume 9.7 fL (8.8-12.5); Monocytes # (Auto) 1.25 K/mcL (0.10-0.90); Monocytes % (Auto) 21.5 % (1.0-12.0); Neutrophils % (Auto) 32.4 % (38.0-78.0); Platelet Count 151 K/mcL (140-440); RBC 3.52 M/mcL (3.59-5.38); Red Cell Distribution Width 12.4 % (11.5-14.5); WBC 5.8 K/mcL (4.5-11.0)
[2024-12-18] MEDS: morphine 2 MG/ML VIAL IV ONE (11:59)
[2024-12-18] MEDS: guaiFENesin 600 MG TAB.SR.12H PO PRN (12:00)
[2024-12-18] MEDS: LACTATED RINGERS 1,000 ML IV SCH (13:52)
[2024-12-19] MEDS: BENZONATATE 100 MG CAPSULE PO SCH (10:26)
[2024-12-19] MEDS: IBUPROFEN 800 MG TABLET PO SCH (10:26)
[2024-12-19] MEDS: ACETAMINOPHEN 1,000 MG/100 ML BAG IV SCH (10:27)
[2024-12-19] MEDS: FUROSEMIDE 40 MG/4 ML VIAL IV SCH (10:27)
[2024-12-19 11:04] LABS: Blood Urea Nitrogen 26 mg/dL (8-23); Calcium 7.8 mg/dL (8.6-10.4); Carbon Dioxide 24 mmol/L (22-30); Chloride 104 mmol/L (96-108); Glomerular Filtration Rate 37; Glucose 160 mg/dL (70-105); Potassium 4.2 mmol/L (3.3-5.1); Sodium 139 mmol/L (133-145)
[2024-12-19] MEDS: IPRATROPIUM/ALBUTEROL 3 ML AMPUL.NEB NEB SCH (11:24)
[2024-12-19] MEDS ORDERED: IBUPROFEN 600 MG TABLET PO PRN (16:00)
[2024-12-19] MEDS: guaiFENesin 600 MG TAB.SR.12H PO PRN (21:22)
[2024-12-20] MEDS: ACETAMINOPHEN 1,000 MG/100 ML BAG IV PRN (03:44)
[2024-12-20 07:01] LABS: Basophils # (Auto) 0.03 K/mcL (0.00-0.30); Basophils % (Auto) 0.6 % (0.0-2.0); Eosinophils # (Auto) 0.27 K/mcL (0.00-0.70); Eosinophils % (Auto) 5.4 % (0.0-7.0); Hematocrit 34.5 % (34.1-44.9); Hemoglobin 10.5 g/dL (11.2-15.7); Lymphocytes # (Auto) 2.55 K/mcL (1.50-4.80); Lymphocytes % (Auto) 50.7 % (15.5-49.0); Mean Cell Volume 93.5 fL (80.0-100.0); Mean Corpuscular HGB Conc 30.4 g/dL (31.0-36.0); Mean Platelet Volume 9.8 fL (8.8-12.5); Monocytes # (Auto) 0.71 K/mcL (0.10-0.90); Monocytes % (Auto) 14.1 % (1.0-12.0); Neutrophils % (Auto) 28.8 % (38.0-78.0); Platelet Count 154 K/mcL (140-440); RBC 3.69 M/mcL (3.59-5.38); Red Cell Distribution Width 12.4 % (11.5-14.5)
[2024-12-20 07:42] LABS: C-Reactive Protein 3.59 mg/dL (0.03-0.80)
[2024-12-20 07:47] LABS: ALT/SGPT 94 U/L (<40); AST/SGOT 120 U/L (<32); Albumin 2.6 gm/dL (3.2-5.2); Albumin/Globulin Ratio 0.8 (1.0-2.3); Alkaline Phosphatase 57 U/L (39-117); Bilirubin,Total 0.2 mg/dL (0.1-1.0); Blood Urea Nitrogen 34 mg/dL (8-23); Calcium 7.6 mg/dL (8.6-10.4); Carbon Dioxide 23 mmol/L (22-30); Chloride 104 mmol/L (96-108); Globulin 3.1 gm/dL (2.2-3.7); Glomerular Filtration Rate 31; Glucose 91 mg/dL (70-105); Potassium 3.8 mmol/L (3.3-5.1); Sodium 140 mmol/L (133-145)
[2024-12-20] MEDS: LEVOFLOXACIN 750 MG TABLET PO SCH (10:34)
[2024-12-20] MEDS: LACTATED RINGERS 1,000 ML IV SCH ×2 (12:38→12:39)
[2024-12-21 07:01] LABS: Basophils # (Auto) 0.03 K/mcL (0.00-0.30); Basophils % (Auto) 0.6 % (0.0-2.0); Eosinophils # (Auto) 0.19 K/mcL (0.00-0.70); Eosinophils % (Auto) 3.7 % (0.0-7.0); Hematocrit 33.5 % (34.1-44.9); Hemoglobin 10.2 g/dL (11.2-15.7); Lymphocytes % (Auto) 55.2 % (15.5-49.0); Mean Cell Volume 95.2 fL (80.0-100.0); Mean Corpuscular HGB Conc 30.4 g/dL (31.0-36.0); Mean Platelet Volume 9.5 fL (8.8-12.5); Monocytes # (Auto) 0.53 K/mcL (0.10-0.90); Monocytes % (Auto) 10.5 % (1.0-12.0); Neutrophils % (Auto) 29.4 % (38.0-78.0); Platelet Count 155 K/mcL (140-440); RBC 3.52 M/mcL (3.59-5.38); Red Cell Distribution Width 12.3 % (11.5-14.5); WBC 5.1 K/mcL (4.5-11.0)
[2024-12-21 07:06] LABS: C-Reactive Protein 2.18 mg/dL (0.03-0.80)
[2024-12-21 07:07] LABS: ALT/SGPT 79 U/L (<40); AST/SGOT 96 U/L (<32); Albumin 2.5 gm/dL (3.2-5.2); Albumin/Globulin Ratio 0.8 (1.0-2.3); Alkaline Phosphatase 70 U/L (39-117); Bilirubin,Total 0.2 mg/dL (0.1-1.0); Blood Urea Nitrogen 23 mg/dL (8-23); Calcium 7.5 mg/dL (8.6-10.4); Carbon Dioxide 26 mmol/L (22-30); Chloride 107 mmol/L (96-108); Glomerular Filtration Rate 40; Glucose 93 mg/dL (70-105); Potassium 3.7 mmol/L (3.3-5.1); Sodium 143 mmol/L (133-145)
[2024-12-21 08:18] VITALS: TEMP 97.2; O2SAT 99
[2024-12-21] MEDS: POTASSIUM PHOSPHATE 40 MEQ in DEXTROSE 5% IN WATER 500 ML IV ONE (09:14)
[2024-12-21] MEDS: AMOXICILLIN/POTASSIUM CLAV 875 MG TABLET PO SCH (09:15)
[2024-12-21] MEDS: LACTOBACILLUS 1 CAPSULE PO SCH (09:15)
== END 2024-12-21 13:58 | DRG 637 ==
LOC: ED 20:27 → MEDSUR 12-13 03:13
PROVIDERS: ADMIT Student in an Organized Health Care Education/Training Program; ATTEND Student in an Organized Health Care Education/Training Program